=== PATIENT | female | born 1970 | race Caucasian/White ===

== ENCOUNTER 2020-04-06 09:35 | Emergency (ER) | payer OTHER, SELFPAY ==
--- NOTE | ~2020-04-06 | XR_ITS ---
EXAMINATION: XR chest 2V DATE: 04/06/2020 10:48 INDICATION: Left chest pain. TECHNIQUE: Frontal and lateral views of the chest were obtained. COMPARISON: Chest single view 07/08/2018 FINDINGS: There is mild atelectasis in left lower lung zone. No pleural effusion or pneumothorax. The heart size is normal. IMPRESSION: 1. Mild atelectasis in left lower lung zone. Reviewed, dictated and finalized at location A. [employer]
--- NOTE | ~2020-04-06 | CT_ITS ---
EXAMINATION: CT brain wo con DATE: 04/06/2020 10:43 INDICATION: Headache. Seizure. TECHNIQUE: Computed tomography (CT) of the head was performed without intravenous contrast. The mA wa s adjusted according to patient size. Iterative reconstruction technique was employed. The dose-lengt h product was 605.33 mGy-cm. COMPARISON: Head CT 07/11/2018 FINDINGS: There is an old infarct in left parietal occipital region. There is an old infarct in media l left parietal lobe. There is no intracranial hemorrhage, acute infarction, or abnormal intracranial mass lesion. The ventricles are normal in size. The mastoid air cells are normal. The paranasal sinu ses are clear. The orbits are normal. IMPRESSION: 1. 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 Reviewed, dictated and finalized at location A. [employer]
[2020-04-06 09:33] VITALS: BP 158/96; PULSE 87; RESP 18; TEMP 36.4; O2SAT 99
[2020-04-06 09:41] VITALS: PULSE 87
--- NOTE | 2020-04-06 09:41 | ECG_ITS ---
Measurements Intervals [place] Rate: 89 P: 56 NM: 138 QRS: -39 QRSD: 97 T: 22 QT: 385 QTc: 470 Interpretive Statements SINUS RHYTHM POSSIBLE LEFT ATRIAL ENLARGEMENT LEFT AXIS DEVIATION DELAYED PRECORDIAL R/S TRANSITION BORDERLINE ST-T WAVE ABNORMALITY- HIGH LATERAL LEADS BASELINE WANDER- I, II, V1-V3 BORDERLINE ECG Electronically Signed On 04-06-2020 17:56:33 [employer] by Jon Arroyo D.O.
[2020-04-06] MEDS: ASPIRIN 81 MG CHEWABLE TABLET 324 MG PO (09:45)
--- NOTE | 2020-04-06 10:23 | ED.CHESTPAIN ---
HPI - Chest Pain General Chief Complaint: Chest Pain Stated Complaint: chest pain Time Seen by Provider: 04/06/20 10:04 Source: patient Mode of arrival: EMS Limitations: no limitations History of Present Illness HPI narrative: This is a 50-year-old female that presents to the emergency department for sharp left-sided chest pain since this morning. Reports intermittent pain in the last couple of days. Reports it has been constant today. Pain is worse with breathing and movement. Reports she was seen by transfer table operator earlier this year and had a cardiac catheterization and was told that she was not a candidate for intervention yet. She has not followed up with a transfer table operator since. Also reports she has been having seizures. Reports she was admitted to [place] for this and had an EEG. She was discharged on medication for her seizures, but did not pick this up due to the cost. Reports shortness of breath and lower extremity edema. Denies fever or cough. Related Data Home Medications Medication Instructions Recorded Confirmed gabapentin 600 mg PO TID 04/06/20 hydrocodone-acetaminophen [[place]] 1 tablet PO Q8H PRN 04/06/20 losartan 100 mg PO DAILY 04/06/20 Allergies Allergy/AdvReac Type Severity Reaction Status Date / Time Penicillins Allergy Unknown Dyspnea Verified 04/06/20 09:38 Review of Systems Review of Systems: Narrative: CONSTITUTIONAL: Denies fever CARDIOVASCULAR: Reports chest pain, and edema. RESPIRATORY: Reports dyspnea. Denies cough MUSCULOSKELETAL: Reports myalgia. NEUROLOGIC: Denies numbness, or weakness. All systems reviewed & are unremarkable except as noted in HPI and below PMFSH Past Medical History Medical History (Updated 04/06/20 @ 13:02 by Bethanie Farr PA-C) History of diabetes mellitus History of gastroesophageal reflux (GERD) History of hyperlipidemia History of hypertension Family History Family History (Updated 05/09/18 @ 11:49 by DOCTOR UNKNOWN) Father Family history of cardiovascular disease Family history of heart disease in male family member before age 55 Mother Family history of lung cancer, Onset Age: 53 Family history of malignant neoplasm of breast in first degree relative Other Diabetes mellitus Family history of malignant neoplasm Hypertension Social History Social History Smoking status: Never smoker Alcohol intake: current Exam Narrative: Exam Narrative: GENERAL: Well-appearing, obese, and in no acute distress. HEAD: Normocephalic, atraumatic. EYES: PERRLA and EOMI. ENT: Nares clear, no rhinorrhea or epistaxis. Mucous membranes moist. Oropharynx without tonsillar hypertrophy exudate or other lesions. Bilateral TMs pearly brian non-bulging NECK: Supple. No adenopathy or masses. No carotid bruits or JVD CHEST: Clear to auscultation. No respiratory distress. No wheezes rales or rhonchi. Tender to palpation of left anterior chest wall HEART: Regular rate and rhythm. No murmur heard. Normal peripheral pulses. EXTREMITIES: Normal range of motion. No edema. Right BKA. Left transmetatarsal amputation SKIN: Warm, dry, no rash. NEURO: No focal deficits. Alert and oriented x3. Cranial nerves II through XII grossly intact PSYCH: Normal mood and affect Course Vital Signs Vital signs: Vital Signs Temperature 97.5 F L 04/06/20 09:33 Pulse Rate 87 04/06/20 09:33 Respiratory Rate 18 04/06/20 09:33 Blood Pressure 158/96 H 04/06/20 09:33 Pulse Oximetry 99 04/06/20 09:33 Temperature 97.5 F L 04/06/20 09:33 Pulse Rate 87 04/06/20 12:31 Respiratory Rate 15 04/06/20 12:31 Blood Pressure 169/95 H 04/06/20 12:31 Pulse Oximetry 98 04/06/20 12:31 MDM - Chest Pain MDM Narrative Medical decision making narrative: Patient presents to the emergency department for sharp left-sided chest pain since this morning. Pain seems very musculoskeletal in nature. She was tender to palpation in the area and the pain was worse with
[2020-04-06 10:28] VITALS: BP 141/84; PULSE 83; RESP 21; O2SAT 99
[2020-04-06 10:35] LABS: Basophils Percent Auto 0.7 % (0.2-1.2); Eosinophils Absolute Auto 0.1 K/mm3 (0-0.3); Hemoglobin 14.2 g/dL (12.0-15.0); Immature Granulocyte Absolute 0.01 K/mm3 (0.00-0.031); Immature Granulocyte Percent A 0.2 % (0-0.5); Lymphocytes Absolute Auto 1.68 K/mm3 (0.9-3.2); Lymphocytes Percent Auto 27.5 % (18.3-44.2); Mean Corpuscular HGB Conc 34.6 g/dl (32-36); Mean Corpuscular Hemoglobin 31.4 pg (26-34); Mean Corpuscular Volume 90.7 fl (80-100); Mean Platelet Volume 10.2 fl (7.4-10.4); Monocytes Absolute Auto 0.3 K/mm3 (0.1-0.6); Monocytes Percent Auto 4.8 % (2.6-8.5); Neutrophils Percent Auto 65.8 % (45.5-73.1); Platelet Count Result 234 k/mm3 (150-375); Red Blood Count 4.52 M/mm3 (4.2-5.4); Red Cell Distribution Width 12.8 % (11.5-14.5); White Blood Count 6.1 K/mm3 (4.5-10.0)
[2020-04-06 10:45] LABS: INR 0.9; Partial Thromboplastin Time 23.5 SECONDS (22.3-36.8); Prothrombin Time 13.1 Seconds (11.1-14.7)
[2020-04-06 10:54] LABS: Anion Gap 10 mmol/L (8-16); Blood Urea Nitrogen 8 mg/dL (7-17); Calcium 9.3 mg/dL (8.4-10.2); Carbon Dioxide 29 mmol/L (22-30); Chloride 100 mmol/L (98-107); Estimated CRCL calculation 150 ml/min; Estimated Glomerular Filt Rate > 60; Glucose 265 mg/dL (65-105); Potassium 3.8 mmol/L (3.4-5.0); Sodium 139 mmol/L (137-145)
[2020-04-06 11:02] LABS: D Dimer 0.34 ug/mL (<0.48)
[2020-04-06 11:06] LABS: Troponin I < 0.012 ng/mL (0.000-0.034)
[2020-04-06 11:36] VITALS: BP 131/68; PULSE 84; RESP 21; O2SAT 96
[2020-04-06 12:31] VITALS: BP 169/95; PULSE 87; RESP 15; O2SAT 98
[2020-04-06 12:36] LABS: NT Pro B Type Natriuretic Pept 38 PG/ML (5-100)
--- NOTE | 2020-04-06 12:49 | PC.NURSE ---
Patient refusing all other medications at this time, patient also refusing any more lab draws (including 3 hour troponin) and requests to go home. Patient informed that she is not getting narcotic pain medications by EDP and patient in room upset and requesting to leave ED.
== END 2020-04-06 13:13 | disposition home or self-care (01) ==
PROVIDERS: Physician Assistant; Emergency Provider Emergency Medicine; PCP Physician Assistant
DX: R07.9 Chest pain, unspecified (principal); R56.9 Unspecified convulsions; E11.9 Type 2 diabetes mellitus without complications; K21.9 Gastro-esophageal reflux disease without esophagitis; E78.5 Hyperlipidemia, unspecified; I10 Essential (primary) hypertension; R94.31 Abnormal electrocardiogram [ECG] [EKG]
CPT/HCPCS: 36415; 70450; 71046; 80048; 83880; 84484; 85025; 85380; 85610; 85730; 93005; 96365; 99284; A9270; J0131

== ENCOUNTER 2021-01-03 17:12 | Emergency (ER) | payer OTHER, SELFPAY ==
[2021-01-03] VITALS (8 sets, daily range): BP systolic 103–148; BP diastolic 65–98; PULSE 100–117; RESP 15–20; TEMP 36.6; O2SAT 93–99
--- NOTE | ~2021-01-03 | CT_ITS ---
EXAMINATION: CT brain wo con DATE: 01/03/2021 17:45 INDICATION: Seizure. Confusion. TECHNIQUE: Computed tomography (CT) of the head was performed without intravenous contrast. The mA wa s adjusted according to patient size. Iterative reconstruction technique was employed. The dose-lengt h product was 908.00 mGy-cm. COMPARISON: Head CT 04/06/2020 FINDINGS: There are old infarcts in the left parietal lobe and left parietal occipital region. There is no intracranial hemorrhage, acute infarction, or abnormal intracranial mass lesion. The ventricles are normal in size. The mastoid air cells are normal. The paranasal sinuses are clear. The orbits ar e normal. IMPRESSION: 1. 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 Reviewed, dictated and finalized at location A.
--- NOTE | ~2021-01-03 | XR_ITS ---
EXAMINATION: XR chest 1V DATE: 01/03/2021 17:52 INDICATION: Seizure. TECHNIQUE: A single frontal view of the chest was obtained. COMPARISON: Chest 2 views 04/06/2020, CT abdomen and pelvis 05/28/2018 FINDINGS: The chest demonstrates clear lungs without pneumonia, pleural effusion, or pneumothorax. Th e heart size is normal. IMPRESSION: 1. No acute cardiopulmonary disease. Reviewed, dictated and finalized at location A.
--- NOTE | 2021-01-03 17:41 | ED.GENADULT ---
HPI - General Adult General Chief complaint: Unspecified <Randal Olivares MD - Last Filed: 01/03/21 18:54> Stated complaint: ? SEIZURE <Randal Olivares MD - Last Filed: 01/03/21 18:54> Time Seen by Provider: 01/03/21 17:22 <Randal Olivares MD - Last Filed: 01/03/21 18:54> History of Present Illness HPI narrative: Patient is a 50-year-old female who presents ER with possible seizure. Patient was found in a camping trailer when she was usually found at a hotel. She is not responding properly. Patient can only intermittently answer questions. She has some fine shaking tremors to her extremities. There is 1 person at the trailer he said she called him and he came back to his trailer and that is what prompted him to call EMS. No additional information can be elicited from this person nor from the patient. <Randal Olivares MD - Last Filed: 01/03/21 18:54> Related Data Home medications: Home Medications Medication Instructions Recorded Confirmed Unable to Obtain Home Medications 01/03/21 01/03/21 <Randal Olivares MD - Last Filed: 01/03/21 18:54> Allergies/adverse reactions: Allergies Allergy/AdvReac Type Severity Reaction Status Date / Time Penicillins Allergy Unknown Dyspnea Verified 04/06/20 09:38 <Randal Olivares MD - Last Filed: 01/03/21 18:54> Review of Systems Review of Systems: ROS unobtainable: Yes unobtainable due to mental status <Randal Olivares MD - Last Filed: 01/03/21 18:54> [facility] Past Medical History Medical History: Medical History (Updated 01/04/21 @ 00:42 by Isaiah Riley MD) History of diabetes mellitus History of gastroesophageal reflux (GERD) History of hyperlipidemia History of hypertension History of seizures <Randal Olivares MD - Last Filed: 01/03/21 18:54> Surgical History Surgical History: Surgical History (Updated 01/03/21 @ 18:52 by Randal Olivares MD) History of below-knee amputation of both lower extremities <Randal Olivares MD - Last Filed: 01/03/21 18:54> Family History Family History: Family History (Updated 05/09/18 @ 11:49 by DOCTOR UNKNOWN) Father Family history of cardiovascular disease Family history of heart disease in male family member before age 55 Mother Family history of lung cancer, Onset Age: 53 Family history of malignant neoplasm of breast in first degree relative Other Diabetes mellitus Family history of malignant neoplasm Hypertension <Randal Olivares MD - Last Filed: 01/03/21 18:54> Social History Social History: Social History Smoking status: Never smoker Alcohol intake: current Gender identity (if verbalized by the patient): Female <Randal Oliavres MD - Last Filed: 01/03/21 18:54> Exam Narrative: GENERAL: Chronically ill-appearing, well-nourished, and in no acute distress. HEAD: Normocephalic, atraumatic. EYES: PERRL and EOMI. ENT: Dry mucous membranes. Small contusions to the tongue bilaterally consistent with bite injury. CHEST: Clear to auscultation. No respiratory distress. HEART: Regular rate and rhythm. Normal peripheral pulses. ABDOMEN: Soft, nontender, nondistended. EXTREMITIES: Bilateral BKA's. No evidence of injury. SKIN: Warm, dry, no rash. NEURO: Awake and alert, oriented x1. Has occasional jerking sensation of the upper extremities as not rhythmic and seems to occur sporadically PSYCH: Normal mood and affect. <Randal Olivares MD - Last Filed: 01/03/21 18:54> Course Vital Signs Vital signs: Vital Signs Temperature 36.6 C 01/03/21 17:10 Pulse Rate 117 H 01/03/21 17:10 Respiratory Rate 18 01/03/21 17:10 Blood Pressure 126/98 H 01/03/21 17:10 Pulse Oximetry 95 01/03/21 17:10 Temperature 36.6 C 01/03/21 17:10 Pulse Rate 100 01/04/21 00:20 Respiratory Rate 16 01/03/21 23:47 Blood Pressure 103/65 01/03/21 23:32 Pulse Oximetry 93 01/03/21 23:32 <Dangelo
[2021-01-03 18:18] LABS: Basophils Percent Auto 0.3 % (0.2-1.2); Eosinophils Absolute Auto 0.9 K/mm3 (0-0.3); Hematocrit 45.9 % (37.0-47.0); Hemoglobin 15.1 g/dL (12.0-15.0); Immature Granulocyte Absolute 0.02 K/mm3 (0.00-0.031); Immature Granulocyte Percent A 0.2 % (0-0.5); Lymphocytes Absolute Auto 0.87 K/mm3 (0.9-3.2); Lymphocytes Percent Auto 9.5 % (18.3-44.2); Mean Corpuscular HGB Conc 32.9 g/dl (32-36); Mean Corpuscular Hemoglobin 30.5 pg (26-34); Mean Corpuscular Volume 92.7 fl (80-100); Mean Platelet Volume 10.1 fl (7.4-10.4); Monocytes Absolute Auto 0.2 K/mm3 (0.1-0.6); Monocytes Percent Auto 2.2 % (2.6-8.5); Neutrophils Absolute Auto 7.2 K/mm3 (1.3-6.7); Neutrophils Percent Auto 77.8 % (45.5-73.1); Platelet Count Result 306 k/mm3 (150-375); Red Blood Count 4.95 M/mm3 (4.2-5.4); Red Cell Distribution Width 12.7 % (11.5-14.5); White Blood Count 9.2 K/mm3 (4.5-10.0)
[2021-01-03 18:29] LABS: Anion Gap 14 mmol/L (8-16); Blood Urea Nitrogen 24 mg/dL (7-17); Calcium 9.6 mg/dL (8.4-10.2); Carbon Dioxide 27 mmol/L (22-30); Chloride 95 mmol/L (98-107); Estimated Glomerular Filt Rate > 60; Ethanol < 10 mg/dL (<10); Glucose 310 mg/dL (65-110); Potassium 4.4 mmol/L (3.4-5.0); Sodium 136 mmol/L (137-145)
[2021-01-03] MEDS: levETIRAcetam 1000MG/NACL100ML 1,000 MG/100 ML BAG 400 MG IVPB (19:17)
[2021-01-03 19:43] LABS: Add Urine Microscopic? YES; Appearance Urine Cloudy (Clear); Bacteria Urine 2+ /hpf; Bilirubin Urine Negative (Negative); Blood Urine 2+ (Negative); Color Urine Yellow (Yellow); Glucose Urine UA 3+ mg/dL (Negative); Ketones Urine 1+ mg/dL (Negative); Leukocyte Esterase Ur 2+ LEU/UL (Negative); Mucus Urine Heavy /lpf; Nitrate Urine Negative (Negative); Protein Urine 2+ mg/dL (Negative); Specific Grav Ur 1.023 (1.001-1.035); Urobilinogen Urine Negative mg/dL (<2.0); WBC Urine 51-75 /hpf
[2021-01-03 20:04] LABS: Amphetamine Screen Urine Negative (Negative); Barbiturate Screen Urine Negative (Negative); Benzodiazepines Screen Urine Negative (Negative); Cannabinoid Screen Urine Negative (Negative); Cocaine Screen Urine Negative (Negative); Methadone Screen Urine Negative (Negative); Opiate Screen Urine Negative (Negative); Phencyclidine Screen Urine Negative (Negative)
[2021-01-04] VITALS (8 sets, daily range): PULSE 100–102; RESP 13–19; TEMP 36.1
--- NOTE | 2021-01-04 00:06 | PC.NURSE ---
Pt a/o x 4. able to tell this RN her name, , date. requesting pain meds. reports she lives at home with her and her hands both hurt. no visible injuries.
--- NOTE | 2021-01-04 01:12 | PC.NURSE ---
Pt states to this RN that her doesn't drive. She reports she lives in a [place]el in [place], [place] at [address]
--- NOTE | 2021-01-04 01:23 | PC.NURSE ---
pt spoke to who requested pt call a taxi, and he will pay for it. taxi service knows that ED staff will place pt in taxi, and her will get her out. [employer] cab en route. pt address [address] [place], [place].
== END 2021-01-04 01:28 | disposition home or self-care (01) ==
PROVIDERS: Emergency Medicine; Emergency Provider Emergency Medicine; PCP Family Medicine
DX: R56.9 Unspecified convulsions (principal); E11.9 Type 2 diabetes mellitus without complications; K21.9 Gastro-esophageal reflux disease without esophagitis; E78.5 Hyperlipidemia, unspecified; I10 Essential (primary) hypertension; Z89.512 Acquired absence of left leg below knee; Z89.511 Acquired absence of right leg below knee
CPT/HCPCS: 36415; 51701; 70450; 71045; 80048; 80307; 81001; 85025; 87077; 87086; 87088; 87186; 96365; 99284; J1953

== ENCOUNTER 2021-01-09 01:27 | Observation (INO) | payer OTHER, SELFPAY ==
--- NOTE | ~2021-01-09 | XR_ITS ---
EXAMINATION: XR chest 1V portable INDICATION: Seizure TECHNIQUE: Portable AP chest at 0213 hours COMPARISON: 01/03/2021 FINDINGS: The lungs are free of acute opacities. There is no pleural effusion or pneumothorax. The ca rdiomediastinal silhouette is normal. IMPRESSION: 1. No acute cardiopulmonary abnormality. Reviewed, dictated and finalized at location B.
[2021-01-09 01:28] VITALS: PULSE 133; RESP 22; TEMP 39.5; O2SAT 94
--- NOTE | 2021-01-09 01:40 | ECG_ITS ---
Measurements Intervals [place] Rate: 111 P: 74 [place]: 134 QRS: -52 QRSD: 105 T: 50 QT: 354 QTc: 482 Interpretive Statements SINUS TACHYCARDIA LEFT ANTERIOR FASCICULAR BLOCK ANTEROSEPTAL INFARCT, AGE INDETERMINATE BASELINE ARTIFACT- II, V2-V6 ABNORMAL ECG Electronically Signed On 01-09-2021 5:59:02 CDT by Jon Arroyo D.O.
--- NOTE | 2021-01-09 02:11 | ED.GENADULT ---
HPI - General Adult General Chief complaint: Seizure Stated complaint: seizures Time Seen by Provider: 01/09/21 01:36 History of Present Illness HPI narrative: Patient 50-year-old female presents to emergency department with chief complaint of seizure. Patient has prior history of seizures and also history of diabetes. The patient was seen in the emergency department about a week ago for seizures was given a dose of Keppra and at that time was discharged home. Patient has history of diabetes called and the patient has history of bilateral BKA's. The patient had a generalized seizure and was found by EMS to be postictal. Related Data Home Medications Medication Instructions Recorded Confirmed Unable to Obtain Home Medications 01/03/21 01/03/21 Allergies Allergy/AdvReac Type Severity Reaction Status Date / Time Penicillins Allergy Unknown Dyspnea Verified 04/06/20 09:38 Review of Systems Review of Systems: A 10 system review of systems was completed on the patient and is negative except for what is stated in the HPI. Nursing and ancillary documentation was reviewed. [facility] Past Medical History Medical History History of diabetes mellitus History of gastroesophageal reflux (GERD) History of hyperlipidemia History of hypertension History of seizures Surgical History Surgical History History of below-knee amputation of both lower extremities Family History Family History Father Family history of cardiovascular disease Family history of heart disease in male family member before age 55 Mother Family history of lung cancer, Onset Age: 53 Family history of malignant neoplasm of breast in first degree relative Other Diabetes mellitus Family history of malignant neoplasm Hypertension Social History Social History Smoking status: Never smoker Alcohol intake: current Gender identity (if verbalized by the patient): Female Exam Narrative: GENERAL: Well-appearing, well-nourished, and in no acute distress. HEAD: Normocephalic, atraumatic. EYES: PERRLA and EOMI. ENT: Nares clear, no rhinorrhea or epistaxis. Mucous membranes moist. NECK: Supple. CHEST: Clear to auscultation. No respiratory distress. HEART: Tachycardic rate and rhythm. No murmur heard. Normal peripheral pulses. ABDOMEN: Soft, nontender, nondistended, normal active bowel sounds. EXTREMITIES: Normal range of motion. No edema. Bilateral BKA's SKIN: Warm, dry, no rash. NEURO: No focal deficits. Alert and oriented x3. PSYCH: Normal mood and affect. Course Vital Signs Vital signs: Vital Signs Temperature 39.5 C H 01/09/21 01:28 Pulse Rate 133 H 01/09/21 01:28 Respiratory Rate 22 H 01/09/21 01:28 Pulse Oximetry 94 01/09/21 01:28 Temperature 38.2 C H 01/09/21 04:11 Pulse Rate 115 H 01/09/21 04:11 Respiratory Rate 23 H 01/09/21 04:11 Blood Pressure 113/91 H 01/09/21 04:11 Pulse Oximetry 96 01/09/21 04:11 Medical Decision Making Vital Signs Vital Signs: Vital Signs Temperature 39.5 C H 01/09/21 01:28 Pulse Rate 133 H 01/09/21 01:28 Respiratory Rate 22 H 01/09/21 01:28 Pulse Oximetry 94 01/09/21 01:28 Temperature 38.2 C H 01/09/21 04:11 Pulse Rate 115 H 01/09/21 04:11 Respiratory Rate 23 H 01/09/21 04:11 Blood Pressure 113/91 H 01/09/21 04:11 Pulse Oximetry 96 01/09/21 04:11 Lab Data Result diagrams: 01/09/21 02:11 01/09/21 02:57 Labs: Lab Results 01/09/21 01/09/21 01/09/21 Range/Units 02:11 02:11 02:57 WBC 13.2 H (4.5-10.0) K/mm3 RBC 4.82 (4.2-5.4) M/mm3 Hgb 14.5 (12.0-15.0) g/dL Hct 43.9 (37.0-47.0) % MCV 91.1 (80-100) fl MCH 30.1 (26-34) pg MCHC 33
[2021-01-09 02:32] LABS: Basophils Percent Auto 0.2 % (0.2-1.2); Eosinophils Percent Auto 0.1 % (0-4.4); Hematocrit 43.9 % (37.0-47.0); Hemoglobin 14.5 g/dL (12.0-15.0); Immature Granulocyte Absolute 0.05 K/mm3 (0.00-0.031); Immature Granulocyte Percent A 0.4 % (0-0.5); Lymphocytes Percent Auto 3.8 % (18.3-44.2); Mean Corpuscular Hemoglobin 30.1 pg (26-34); Mean Corpuscular Volume 91.1 fl (80-100); Mean Platelet Volume 10.7 fl (7.4-10.4); Monocytes Absolute Auto 0.5 K/mm3 (0.1-0.6); Monocytes Percent Auto 3.8 % (2.6-8.5); Neutrophils Absolute Auto 12.1 K/mm3 (1.3-6.7); Neutrophils Percent Auto 91.7 % (45.5-73.1); Platelet Count Result 260 k/mm3 (150-375); Red Blood Count 4.82 M/mm3 (4.2-5.4); Red Cell Distribution Width 12.4 % (11.5-14.5); White Blood Count 13.2 K/mm3 (4.5-10.0)
[2021-01-09 02:43] LABS: Prothrombin Time 12.7 Seconds (11.1-14.7)
[2021-01-09 02:44] LABS: Partial Thromboplastin Time 23.2 SECONDS (22.3-36.8)
[2021-01-09] MEDS: SODIUM CHLORIDE 0.9% IV 1,000 ML 999 ML IV CONT ×2 (02:55→04:09)
[2021-01-09] MEDS: LORazepam INJ (*CRX) 2 MG/ML VIAL 1 MG IV PUSH (03:00)
[2021-01-09] MEDS: ONDANSETRON INJ 4 MG/2 ML VIAL IV PUSH ×3 (03:02→12:55)
[2021-01-09 03:16] LABS: Lactic Acid Reflex 3.5 mmol/L (0.7-2.1)
[2021-01-09 03:17] LABS: Alanine Aminotransferase 19 U/L (4-35); Albumin Level 3.7 g/dL (3.5-5.1); Alkaline Phosphatase 122 U/L (38-126); Anion Gap 10 mmol/L (8-16); Aspartate Amino Transferase 22 U/L (14-36); Bilirubin,Total 0.7 mg/dL (0.2-1.3); Blood Urea Nitrogen 10 mg/dL (7-17); Calcium 8.8 mg/dL (8.4-10.2); Carbon Dioxide 26 mmol/L (22-30); Chloride 100 mmol/L (98-107); Estimated Glomerular Filt Rate > 60; Glucose 337 mg/dL (65-110); Lipase 59 U/L (23-300); Magnesium 0.7 mg/dL (1.6-2.3); Potassium 3.5 mmol/L (3.4-5.0); Sodium 136 mmol/L (137-145)
[2021-01-09] MEDS: MORPHINE SULFATE (*CRX) 4 MG/ML INJ IV PUSH (04:10)
[2021-01-09 04:11] VITALS: BP 113/91; PULSE 115; RESP 23; TEMP 38.2; O2SAT 96
[2021-01-09 04:17] LABS: Glucose Point of Care 270 mg/dl (65-105)
[2021-01-09 04:19] LABS: Add Urine Microscopic? YES; Appearance Urine Cloudy (Clear); Bacteria Urine Trace /hpf; Bilirubin Urine Negative (Negative); Blood Urine 2+ (Negative); Color Urine Yellow (Yellow); Glucose Urine UA 3+ mg/dL (Negative); Ketones Urine Trace mg/dL (Negative); Leukocyte Esterase Ur 3+ LEU/UL (Negative); Mucus Urine Rare /lpf; Nitrate Urine Negative (Negative); Protein Urine 1+ mg/dL (Negative); Specific Grav Ur 1.023 (1.001-1.035); Squamous Epithelial Cell Urine Rare /hpf (Few); Urobilinogen Urine Negative mg/dL (<2.0); WBC Clumps Urine Present /HPF; WBC Urine >75 /hpf
[2021-01-09 06:02] LABS: Reflex Lactic Acid Yes or No Add Lactic
--- NOTE | 2021-01-09 06:39 | PM.IMHP ---
H&P: HPI History of Present Illness Date/Time: 01/09/21 06:39 Chief Complaint: Seizure Narrative: Patient 50-year-old female presents to emergency department with chief complaint of seizure. Patient has prior history of seizures not on seizure medication and has been ongoing since past 6 months. She is supposed to see a neurologist but has not been able to see 1. She has only been to the ER with seizures so far. Last evening she started shaking which lasted approximately 15 minutes. She states she was shaking all over her body and also ultimately lost consciousness. EMS was called by her and was brought to the ER for evaluation. She was postictal per ED physician at the time of his initial evaluation however has improved significantly in her mental status since then. She also feels back to her normal self. However she had a spike of fever in the ER and was noted to have urinary tract infection. She also reports that she has been having urinary complaints with burning urination since past few days. She was here a week ago with similar seizure-like episode and was placed on Keppra and discharged home. It is noted that she had a urinary tract infection at that time as well the culture of which is is growing ESBL Klebsiella pneumoniae. She has a history of diabetes mellitus and on insulin. She also has diabetic foot infection needing bilateral BKA 1 2 years ago and [address] head done a week ago for similar seizure was negative CT head has not been repeated this time. She was noted to have lactic acidosis of 3.5 this admission Review of Systems Review of Systems: - CONSTITUTIONAL: Denies weight loss, fever and chills. - HEENT: Denies changes in vision and hearing - RESPIRATORY: Denies SOB and cough. - CV: Denies palpitations and CP. - GI: Reports abdominal pain, nausea, vomiting and denies diarrhea. - : Reports dysuria and urinary frequency. - MSK: Denies myalgia and joint pain. - SKIN: Denies rash and pruritus. - NEUROLOGICAL: Denies headache and syncope. Reports seizure/shaking - PSYCHIATRIC: Denies recent changes in mood. Denies anxiety and depression. All systems reviewed & are unremarkable except as noted in HPI and below Constitutional: Constitutional: Reports fatigue and Reports weakness Neurologic: Reports weakness Endocrine: Endocrine: Reports fatigue PMFSH Past Medical History Medical History History of diabetes mellitus History of gastroesophageal reflux (GERD) History of hyperlipidemia History of hypertension History of seizures Surgical History Surgical History History of below-knee amputation of both lower extremities Family History Family History Father Family history of cardiovascular disease Family history of heart disease in male family member before age 55 Mother Family history of lung cancer, Onset Age: 53 Family history of malignant neoplasm of breast in first degree relative Other Diabetes mellitus Family history of malignant neoplasm Hypertension Social History Social History Smoking status: Never smoker Alcohol intake: current Gender identity (if verbalized by the patient): Female Meds Home Medications and Allergies Home Medications Medication Instructions Recorded Confirmed Type Unable to Obtain Home Medications 01/03/21 01/03/21 History Allergies Allergy/AdvReac Type Severity Reaction Status Date / Time Penicillins Allergy Unknown Dyspnea Verified 04/06/20 09:38 Vital Signs Vital Signs - 24 hr 01/09/21 01:28 01/09/21 04:11 Temperature 103.1 F H 100.7 F H Pulse Rate 133 H 115 H Respiratory Rate 22 H 23 H Blood Pressure 113/91 H Pulse Oximetry 94 96 Exam Narrative
--- NOTE | 2021-01-09 07:38 | ADMGEN ---
This patient, Jayne Strong, was admitted to [facility] Surg Room 322-02. Patient/family oriented to hospital policies and general routines including ID bracelet, bed and alarms, visiting hours, pain management, procedures, bathroom and other care routines, personal items, smoking policy, room service/diet, and visiting hours. Information on how to activate the Rapid Response Team has been discussed. Patient/Family are encouraged to report perceived risks to care and to ask questions if they do not understand what they are told or what they should do.
[2021-01-09 08:30] LABS: Glucose Point of Care 249 mg/dl (65-105)
[2021-01-09 08:37] LABS: Lactic Acid 3.5 mmol/L (0.7-2.1)
[2021-01-09] MEDS: SODIUM CHLORIDE 0.9% IV 1,000 ML 100 ML IV CONT (08:56)
[2021-01-09] MEDS: INSULIN ASPART (*BKC) 100 UNITS/ML 12 UNITS SUB-Q (08:59)
[2021-01-09] MEDS: INSULIN ASPART (*BKC) 100 UNITS/ML SUB-Q (08:59)
--- NOTE | 2021-01-09 10:19 | WPDNEURCNPN ---
Assessment and Plan Additional Plan 1. EEG 2. Continue the Keppra 750 mg twice a day 3. She can always have an episode of hypoglycemia with seizures. Will increase the Keppra 1000 mg twice a day if definitely seizures are recurring without hypoglycemia Consult date: 01/09/21 Time Seen: 10:00 HPI: Jayne Strong is a 50 year old female has been admitted to the hospital for the complaints of seizures of 6 months duration she has not been seen by any specific physician in the past has only been coming to the emergency room reportedly she started shaking which lasted for about 15 minutes and she became unconscious EMS was called by her and she was brought to the emergency room for further help by the time she was seen in the emergency room she had significantly improved but she was noted to have elevated temperature and was found to have UTI which she has been having rather frequently . She had been in the emergency room a week early with the same complaints and was started on Keppra at that particular time and her urine from that time is growing Klebsiella pneumonia. Patient has history of diabetes mellitus insulin-dependent, has undergone bilateral below-knee amputation, and had a CT scan done about a week ago which was negative. As mentioned above she has ongoing history of diabetes mellitus, GERD, hypertension, and seizure disorder, and has undergone bilateral [id number] amputation of both lower extremities. She is a never smoker current alcohol intaker Review of Systems Review of Systems: All systems reviewed & are unremarkable except as noted in HPI and below PMFSH Past Medical History Medical History History of diabetes mellitus History of gastroesophageal reflux (GERD) History of hyperlipidemia History of hypertension History of seizures Surgical History Surgical History History of below-knee amputation of both lower extremities Family History Family History Father Family history of cardiovascular disease Family history of heart disease in male family member before age 55 Mother Family history of lung cancer, Onset Age: 53 Family history of malignant neoplasm of breast in first degree relative Other Diabetes mellitus Family history of malignant neoplasm Hypertension Social History Social History Smoking status: Never smoker Alcohol intake: current Gender identity (if verbalized by the patient): Female Meds Home Medications and Allergies Home Medications Medication Instructions Recorded Confirmed Type aspirin 81 mg DAILY 01/09/21 01/09/21 History atorvastatin 40 mg PO DAILY 01/09/21 01/09/21 History famotidine 20 mg BID 01/09/21 01/09/21 History gabapentin 600 mg TID 01/09/21 01/09/21 History insulin glargine [Basaglar KwikPen 42 unit SUBCUT DAILY 01/09/21 01/09/21 History U-100 Insulin] losartan 50 mg DAILY 01/09/21 01/09/21 History tamsulosin 0.4 mg PO DAILY 01/09/21 01/09/21 History Allergies Allergy/AdvReac Type Severity Reaction Status Date / Time Penicillins Allergy Unknown Dyspnea Verified 04/06/20 09:38 Vital Signs Vital Signs - 24 hr 01/09/21 01:28 01/09/21 04:11 Temperature 39.5 C H 38.2 C H Pulse Rate 133 H 115 H Respiratory Rate 22 H 23 H Blood Pressure 113/91 H Pulse Oximetry 94 96 Exam Narrative: examination revealed her to be awake alert cooperative in no obvious acute distress, head normocephalic with no cranial bruit, ear nose throat examination normal, neck is supple with no cervical bruit ,no thyromegaly, no lymphadenopathy, heart regular, lungs clear ,abdomen is soft, neurologically she has normal mental status, normal speech, pupils round regular bowens of vision full ,extraocular movements full ,face symmetrical, tongue midline and motor
[2021-01-09 11:44] LABS: Glucose Point of Care 151 mg/dl (65-105)
[2021-01-09 12:04] LABS: Lactic Acid Reflex 6.1 mmol/L (0.7-2.1)
[2021-01-09 13:21] LABS: Hematocrit 42.2 % (37.0-47.0); Hemoglobin 13.6 g/dL (12.0-15.0); Mean Corpuscular HGB Conc 32.2 g/dl (32-36); Mean Corpuscular Hemoglobin 30.3 pg (26-34); Mean Platelet Volume 11.1 fl (7.4-10.4); Platelet Count Result 194 k/mm3 (150-375); Red Blood Count 4.49 M/mm3 (4.2-5.4); Red Cell Distribution Width 12.8 % (11.5-14.5); White Blood Count 8.7 K/mm3 (4.5-10.0)
[2021-01-09 13:24] LABS: Phosphorus 2.2 mg/dL (2.5-4.5)
--- NOTE | 2021-01-09 13:25 | P.PNCROSS_ITS ---
Event Note Event Note Event Note: follow up rounding note. RN notified me that Lactic Acid rising now > 6 IVF rate increased Urine looks infected but will amplify spectrum of abx as pt has admitted she is a Fentanyl user and purchases her drugs from the street Pt upset that I will not give her Fentanyl and threatening to leave AMA I have called her mother in law ( pt does not know her 's phone number or where he works) She confirms that Jayne is frequently in and of hospitals ( she does this all the time. She buys pills from the street and takes 20-30 a day. then gets a seizure and is admitted to the hospital again ) [id number] declines to give me Darrion's number because he is at work and pr obably won't answer but does agree to try and call him and let him know his wants to leave AMA. I have called her back and she states that Darrion said he will come and get her, but he does not have a car and he will need to find someone to get him a ride.
--- NOTE | 2021-01-09 13:37 | WPDNEUROLOGY ---
Neurology EEG Report General Information Date of Study: 01/09/21 TEST eeg DIAGNOSIS Seizures CONDITION OF RECORDING drowsy and sleep EEG NUMBER [id number] CLINICAL HISTORY only from the records history of seizures EEG DESCRIPTION low-voltage beta activity seen admixed with low to medium voltage 5 to 7 hertz per 2nd theta activity during drowsiness. Bilateral symmetrical sleep activity seen during sleep. Multiple movements and muscle artifacts are also noted. Hyperventilation not done. Photic dilation not done. Non paroxysmal. Nonfocal. Nonlateralizing. IMPRESSION No significant abnormalities noted during drowsiness and sleep. Clinical correlation recommended
[2021-01-09 13:45] LABS: Creatine Kinase MB 0.6 ng/mL (0.0-2.37)
[2021-01-09 13:47] LABS: Alanine Aminotransferase 20 U/L (4-35); Alkaline Phosphatase 116 U/L (38-126); Anion Gap 12 mmol/L (8-16); Aspartate Amino Transferase 34 U/L (14-36); Bilirubin,Total 0.8 mg/dL (0.2-1.3); Blood Urea Nitrogen 11 mg/dL (7-17); CRP 3.3 mg/dL (<1.0); Calcium 9.1 mg/dL (8.4-10.2); Carbon Dioxide 26 mmol/L (22-30); Chloride 99 mmol/L (98-107); Estimated Glomerular Filt Rate > 60; Glucose 303 mg/dL (65-110); Magnesium 0.7 mg/dL (1.6-2.3); Sodium 137 mmol/L (137-145)
[2021-01-09 14:03] LABS: Band Neutrophils Percent 8 % (0-6); Lymphocytes Absolute Manual 0.17 K/mm3 (1.1-4.5); Monocytes Absolute Manual 0.08 K/mm3 (0.1-0.90); Monocytes Percent Manual 1 % (3-9); Neutrophils Absolute Manual 8.43 K/mm3 (1.7-7.2); Neutrophils Percent Manual 89 % (46-73); Platelet Estimate Adequate (Adequate); Total Cells Counted 100
[2021-01-09] MEDS: HYDROcodone/acetaminophen (*CRX) 5-325 MG TABLET 1 TAB PO (14:45)
[2021-01-09] MEDS: GABAPENTIN 300 MG CAPSULE PO (14:46)
[2021-01-09 15:13] VITALS: BP 123/73; PULSE 118; RESP 12; TEMP 38.1; O2SAT 96
--- NOTE | 2021-01-09 17:31 | PC.NURSE ---
Pt came from ED at shift change this morning. Pt was vomiting and complaining of choking, however was talking. We got pt cleaned up, and she slept for about 1 hr. Pt woke up and started yelling for pain meds. was notified with a critical latic result. Dr came to asses pt, and pt admitted to taking medication from the streets . Pt continually asked for pain meds and stated she uses fentanyl. When the Dr would not give pt more pain medications, the pt stated she is leaving. The dr explained and educated pt extensively about why she should stay in the hospital to treat her infection and receive antibiotics. This nurse also educated pt about staying to receive treatment. Pt received one dose of antibiotics, before she started to try to pull her IV out. Pt stated if we didnt get her a wheelchair she would put herself on the floor and crawl out. Pt could not tell us what her husbands phone number was or where he worked to reach him. We contacted a person she did give a number for, who also confirmed that the pt abuses multiple pain medications. Pt signed the AMA paperwork and was taken down to the front by staff, in a wheelchair. The tech stayed with pt, due to pt stating she would put herself out of the wheelchair, while she waited for a cab. The tech called this nurse, stating the pt was shaking and unresponsive. I went down to the lobby, where pt was in this condition. I called a rapid response. The pt was then taken back to the ED triage. Her was notified that she was going back to the ED.
--- NOTE | 2021-01-09 19:44 | PM.SD2 ---
Same Day Admit/Disch: HPI History of Present Illness Chief complaint: UTI/Hyperglycemia/seizure Narrative: Jayne Strong is a 50-year-old female presents to emergency department with chief complaint of seizure. Patient has prior history of seizures not on seizure medication and has been ongoing since past 6 months. She is supposed to see a neurologist but has not been able to see 1. She has only been to the ER with seizures so far. Last evening she started shaking which lasted approximately 15 minutes. She states she was shaking all over her body and also ultimately lost consciousness. EMS was called by her and was brought to the ER for evaluation. She was postictal per ED physician at the time of his initial evaluation however has improved significantly in her mental status since then. She also feels back to her normal self. However she had a spike of fever in the ER and was noted to have urinary tract infection. She also reports that she has been having urinary complaints with burning urination since past few days. She was here a week ago with similar seizure-like episode and was placed on Keppra and discharged home. It is noted that she had a urinary tract infection at that time as well the culture of which is is growing ESBL Klebsiella pneumoniae. She has a history of diabetes mellitus and on insulin. She also has diabetic foot infection needing bilateral BKA 1 2 years ago and [address] head done a week ago for similar seizure was negative CT head has not been repeated this time. She was noted to have lactic acidosis of 3.5 this admission PMFSH Past Medical History Medical History History of diabetes mellitus History of gastroesophageal reflux (GERD) History of hyperlipidemia History of hypertension History of seizures Surgical History Surgical History History of below-knee amputation of both lower extremities Family History Family History Father Family history of cardiovascular disease Family history of heart disease in male family member before age 55 Mother Family history of lung cancer, Onset Age: 53 Family history of malignant neoplasm of breast in first degree relative Other Diabetes mellitus Family history of malignant neoplasm Hypertension Social History Social History Smoking status: Never smoker Second hand tobacco smoke exposure: No Alcohol intake: never Substance use: never Gender identity (if verbalized by the patient): Female Spiritual care concerns: No Same Day Admit/Disch: Med Pre-admit Medications Home Medications Medication Instructions Recorded Confirmed Type aspirin 81 mg DAILY 01/09/21 01/09/21 History atorvastatin 40 mg PO DAILY 01/09/21 01/09/21 History famotidine 20 mg BID 01/09/21 01/09/21 History gabapentin 600 mg TID 01/09/21 01/09/21 History insulin glargine [Basaglar KwikPen 42 unit SUBCUT DAILY 01/09/21 01/09/21 History U-100 Insulin] losartan 50 mg DAILY 01/09/21 01/09/21 History tamsulosin 0.4 mg PO DAILY 01/09/21 01/09/21 History Exam Narrative: GEN: NAD, AAOx3, uncooperative HEENT: NCAT, MMM, EOMI Neck: no JVD Heart: S1S2 RRR Lungs: CTA B/l Abd: soft, NT, ND, bowel sounds normoactive Ext: moves all, no cyanosis, no clubbing, no edema bilateral BKA Neuro: Cranial nerves intact alert and oriented x3 no focal deficits Psych: Anxious mood and affect are congruent DS: Data Data Completed and Pending Labs on day of discharge: Labs from last 24 hours 01/09/21 01/09/21 01/09/21 11:39 10:48 08:26 WBC RBC Hgb Hct MCV MCH MCHC RDW Plt Count MPV Immature Gran % (Auto) Neut % (Auto) Lymph % (Auto) Door % (Auto) Eos % (Auto) Baso % (Auto)
[2021-01-10 01:11] LABS: Creatine Kinase 203 U/L (30-135)
== END 2021-01-09 17:00 | disposition left against medical advice (07) ==
LOC: ANHED 05:50 → ANH3MEDSUR 06:08
PROVIDERS: Hospitalist; Admitting Provider Internal Medicine; Emergency Provider Emergency Medicine; PCP Physician Assistant; Visit Provider Internal Medicine
DX: N30.00 Acute cystitis without hematuria (principal); A41.9 Sepsis, unspecified organism; R56.9 Unspecified convulsions; E87.2 Acidosis; B96.1 Klebsiella pneumoniae [K. pneumoniae] as the cause of diseases classified elsewhere; E11.65 Type 2 diabetes mellitus with hyperglycemia; I10 Essential (primary) hypertension; E78.5 Hyperlipidemia, unspecified; F11.20 Opioid dependence, uncomplicated; K21.9 Gastro-esophageal reflux disease without esophagitis; Z89.512 Acquired absence of left leg below knee; Z89.511 Acquired absence of right leg below knee; Z79.4 Long term (current) use of insulin; Z79.82 Long term (current) use of aspirin; Z99.3 Dependence on wheelchair
CPT/HCPCS: 36415; 71045; 80053; 81001; 82010; 82550; 82553; 82948; 83036; 83605; 83690; 83735; 84100; 85025; 85610; 85730; 86140; 87040; 87077; 87086; 87088; 87186; 93005; 95816; 96361; 96365; 96367; 96375; 96376; 99285; A9270; G0378; J0131; J0692; J0696; J1815; J2060; J2270; J2405; J7030

== ENCOUNTER 2021-01-09 17:00 | Inpatient (IN) | payer OTHER, SELFPAY ==
--- NOTE | ~2021-01-09 | XR_ITS ---
EXAMINATION: XR abdomen/kub 1V DATE: 01/13/2021 09:33 INDICATION: Left kidney stone. TECHNIQUE: A supine view of the abdomen was obtained. COMPARISON: CT abdomen and pelvis 01/11/2021 FINDINGS: There are no dilated loops of bowel. There is a left internal ureteral stent in expected po sition. There are 2 stones in left kidney with the larger measuring 15 mm. There are phleboliths in t he pelvis. IMPRESSION: 1. Left kidney stones with left internal ureteral stent in expected position. Reviewed, dictated and finalized at location B.
--- NOTE | ~2021-01-09 | CT_ITS ---
EXAMINATION: CT brain wo con DATE: 01/13/2021 12:40 INDICATION: Confusion. TECHNIQUE: Computed tomography (CT) of the head was performed without intravenous contrast. The mA wa s adjusted according to patient size. Iterative reconstruction technique was employed. The dose-lengt h product was 605.33 mGy-cm. 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 There is no intracranial hemorrhage, acute infarction, or abnormal intracranial mass lesion. The ventricles are normal in size. The orbits are normal. There is mild mucosal thickening in the paranasal sinuses . The mastoid air cells are normal. IMPRESSION: 1. 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 Reviewed, dictated and finalized at location B.
--- NOTE | ~2021-01-09 | XR_ITS ---
EXAMINATION: XR chest port-a-cath/central DATE: 01/12/2021 16:46 INDICATION: Central line placement. TECHNIQUE: A single frontal view of the chest was obtained. COMPARISON: Chest single view 01/11/2021, chest CT 01/11/2021 FINDINGS: There is chronic mild elevation of right hemidiaphragm. There are patchy airspace opacities in all right lung zones and in left upper and lower lung zones with a peripheral predominance. No pl eural effusion or pneumothorax. The heart size is normal. There is a right internal jugular central v enous catheter with tip at superior cavoatrial junction. IMPRESSION: 1. Central line tip at superior cavoatrial junction. 2. Multifocal lung disease with worsening on the left, likely a combination of pneumonia and mild pul monary edema. Reviewed, dictated and finalized at location B. IMPRESSION: 1. Central line tip at superior cavoatrial junction. 2. Multifocal lung disease with worsening on the left, likely a combination of pneumonia and mild pulmonary edema.
--- NOTE | ~2021-01-09 | CT_ITS ---
EXAMINATION: CT abdomen pelvis wo con DATE: 01/11/2021 18:40 INDICATION: Renal stone. TECHNIQUE: Computed tomography (CT) of the abdomen and pelvis was performed without intravenous contr ast. Automated exposure control and iterative reconstruction technique were employed. The dose-length product was 1543.10 mGy-cm. COMPARISON: None FINDINGS: Small left and tiny right posterior layering pleural effusions. Centrilobular groundglass opacities a nd some smooth septal line thickening at the visualized right lower lung most likely asymmetric mild pulmonary edema versus less likely pneumonia or aspiration. Heart size is normal. Atherosclerotic cor onary artery calcific location. No pericardial effusion. Status post cholecystectomy. Liver, spleen, pancreas and right adrenal gland are normal. Mild increase in size of a now 1 cm left adrenal nodule which given greater than 2 years of elapsed time most likely represents an adenoma. 13 mm obstructing stone at the left ureteropelvic junction with mild left hydronephrosis. Some gas is seen within the nondependent calyces of the left kidney which suggests infection with gas-forming organism. Additiona l thymoma or stone in an inferior calyx of the left kidney. Right kidney is unremarkable with no neph rolithiasis or hydronephrosis. Fluid throughout the colon consistent with diarrhea. Small bowel and a ppendix are normal. Heredia catheter within the decompressed bladder. Uterus and bilateral adnexa are u nremarkable. No free intraperitoneal gas or fluid. No pathologically enlarged abdominal or pelvic lym phadenopathy. Mild lumbar levocurvature with mild spondylosis. IMPRESSION: 1. Left nephrolithiasis with obstructing 13 mm stone at the left ureteropelvic junction. 2. Mild left hydropneumonephrosis raising concern for postobstructive pyelitis. Correlate with urinal ysis. 3. Centrilobular lung disease in the visualized right lower lung which could represent pulmonary keyona a, aspiration or pneumonia. 4. Small left and trace right pleural effusions. 5. Fluid throughout the colon consistent with diarrhea of indeterminate etiology. Reviewed, dictated and finalized at location A. IMPRESSION: 1. Left nephrolithiasis with obstructing 13 mm stone at the left ureteropelvic junction. 2. Mild left hydropneumonephrosis raising concern for postobstructive pyelitis. Correlate with urinalysis. 3. Centrilobular lung disease in the visualized right lower lung which could re present pulmonary edema, aspiration or pneumonia. 4. Small left and trace right pleural effusions. 5. Fluid throughout the colon consistent with diarrhea of indeterminate etiolog y.
--- NOTE | ~2021-01-09 | CT_ITS ---
EXAMINATION: CTA chest PE protocol DATE: 01/11/2021 18:39 INDICATION: Status change with hypoxia and tachycardia TECHNIQUE: Computed tomography (CT) pulmonary angiogram of the chest was performed with 100 mL Omnipa que-350 intravenous contrast. Additional 3D reconstructions utilizing coronal maximum intensity proje ction (MIP) were performed. Automated exposure control and iterative reconstruction technique were em ployed. The dose-length product was 766.64 mGy-cm. COMPARISON: None FINDINGS: Excellent contrast opacification of the pulmonary arteries. There is moderate streak artifact from de nse contrast in the superior vena cava and right atrium. Moderate to severe scattered respiratory mot ion artifact which more prominent in the right lung. No pulmonary embolism identified. Sensitivity is however mildly decreased in some of the smaller subsegmental pulmonary arteries on the left and more significantly decreased in the segmental and subsegmental pulmonary arteries throughout the right sivan ng. Centrilobular groundglass opacities in the right mid and lower lungs along with mild peripheral s eptal line thickening right upper and middle lobes. Small left and tiny right pleural effusions with mild dependent compressive atelectasis in the left lower lobe. Heart size is normal. Atherosclerotic coronary artery calcific location. No pericardial effusion. Thoracic aorta is normal in caliber with no dissection. No pathologically enlarged thoracic lymphadenopathy. Visualized upper abdomen is unrem arkable. lymphadenopathy. Mild thoracic spondylosis. IMPRESSION: 1. No evident pulmonary embolism with evaluation only minimally limited on the left but more signific antly limited in the segmental and subsegmental pulmonary arteries of the right lung by prominent res piratory motion. 2. Centrilobular groundglass opacities and some peripheral septal line thickening in the right lung m ost likely mild pulmonary edema although differential would include aspiration or pneumonia. 3. Small left and tiny right pleural effusions. Reviewed, dictated and finalized at location A. IMPRESSION: 1. No evident pulmonary embolism with evaluation only minimally limited on the left but more significantly limited in the segmental and subsegmental pulmonary arteries of the right lung by prominent respiratory motion. 2. Centrilobular groundglass opacities and some peripheral septal line thickeni ng in the right lung most likely mild pulmonary edema although differential wou ld include aspiration or pneumonia. 3. Small left and tiny right pleural effusions.
--- NOTE | ~2021-01-09 | XR_ITS ---
XR retrograde pyelo w/stent LT DATE: 01/12/2021 15:52 INDICATION: Left internal urinary stent placement TECHNIQUE: 15.3 seconds fluoroscopy time 356.9 radcm2 Multiple left retrograde pyelographic images COMPARISON: 01/11/2021 CT abdomen pelvis FINDINGS: An oval apparently faintly calcified left renal pelvic stone is identified. There is modera te left hydronephrosis with blunting of the left renal calyces. There appears to be a left internal urinary stent on the final images although detail is limited. The proximal pigtail probably overlies the upper pole infundibulum, distal pigtail probably overlying th e left side of the urinary bladder. IMPRESSION: 13 mm left pelvic calculus with moderate left hydronephrosis; apparent placement of left internal urinary stent. Image detail is limited. Reviewed, dictated and finalized at Location A. Reviewed, dictated and finalized at location A. IMPRESSION: 13 mm left pelvic calculus with moderate left hydronephrosis; appar ent placement of left internal urinary stent. Image detail is limited.
--- NOTE | ~2021-01-09 | XR_ITS ---
EXAMINATION: XR chest 1V portable DATE: 01/11/2021 15:25 INDICATION: Tachypnea TECHNIQUE: frontal view of the chest was obtained. COMPARISON: Chest radiograph dated 01/09/2021 FINDINGS: Persistent mild elevation of the right hemidiaphragm. There are new increased interstitial opacities with peripheral septal line thickening in the right mid to lower lung suggesting asymmetric mild pulm onary edema. Left lung remains clear. No pleural effusion or pneumothorax. The cardiomediastinal silh ouette is normal. IMPRESSION: 1. Symmetric interstitial opacities with peripheral septal line thickening in the right mid and lower lung zone which could represent asymmetric mild pulmonary edema or pneumonia. Reviewed, dictated and finalized at location A. IMPRESSION: 1. Symmetric interstitial opacities with peripheral septal line thickening in t he right mid and lower lung zone which could represent asymmetric mild pulmonar y edema or pneumonia.
--- NOTE | 2021-01-09 17:50 | ECG_ITS ---
Measurements Intervals Black Rate: 148 P: 64 NC: 115 QRS: -60 QRSD: 86 T: 82 QT: 285 QTc: 447 Interpretive Statements SINUS TACHYCARDIA WITH SHORT NC INTERVAL LEFT AXIS DEVIATION DELAYED PRECORDIAL R/S TRANSITION NONSPECIFIC ST & T-WAVE ABNORMALITY- HIGH LATERAL LEADS BASELINE WANDER- II, III, AVR, AVL, AVF, V1 ABNORMAL ECG Electronically Signed On 01-09-2021 20:13:23 CDT by Jon Arroyo D.O.
--- NOTE | 2021-01-09 18:14 | ED.WEAKNESS ---
HPI - Weakness General Chief complaint: Weakness <Isaiah Riley MD - Last Filed: 01/09/21 18:46> Stated complaint: not responding, <Isaiah Riley MD - Last Filed: 01/09/21 18:46> Time Seen by Provider: 01/09/21 18:10 <Isaiah Riley MD - Last Filed: 01/09/21 18:46> History of Present Illness HPI Narrative: 50 yo female w/ h/o DM, seizure disorder presents to the ED for AMS. She was seen in the ED this morning after a period of unresponsiveness. It was thought that she probably had a seizure. She had a lactic acidosis and UTI. Lactic acidosis cleared. She was admitted to the Hospital. She subsequently checked herself out AMA. She was in the lobby when a rapid response was called. On arrival back at the ED she was diaphoretic and tachycardic. She is not providing any additional history. <Isaiah Riley MD - Last Filed: 01/09/21 18:46> Related Data Home medications: Home Medications Medication Instructions Recorded Confirmed aspirin 81 mg DAILY 01/09/21 01/09/21 atorvastatin 40 mg PO DAILY 01/09/21 01/09/21 famotidine 20 mg BID 01/09/21 01/09/21 gabapentin 600 mg TID 01/09/21 01/09/21 insulin glargine [Basaglar KwikPen 42 unit SUBCUT DAILY 01/09/21 01/09/21 U-100 Insulin] losartan 50 mg DAILY 01/09/21 01/09/21 tamsulosin 0.4 mg PO DAILY 01/09/21 01/09/21 <Isaiah Riley MD - Last Filed: 01/09/21 18:46> Allergies/Adverse reactions: Allergies Allergy/AdvReac Type Severity Reaction Status Date / Time Penicillins Allergy Unknown Dyspnea Verified 01/09/21 10:49 <Isaiah Riley MD - Last Filed: 01/09/21 18:46> Review of Systems Review of Systems: ROS unobtainable: Yes unobtainable due to medical condition and unobtainable due to mental status <Isaiah Riley MD - Last Filed: 01/09/21 18:46> PMFSH Past Medical History Medical History: Medical History History of diabetes mellitus History of gastroesophageal reflux (GERD) History of hyperlipidemia History of hypertension History of seizures <Isaiah Riley MD - Last Filed: 01/09/21 18:46> Surgical History Surgical History: Surgical History History of below-knee amputation of both lower extremities <Isaiah Riley MD - Last Filed: 01/09/21 18:46> Family History Family History: Family History Father Family history of cardiovascular disease Family history of heart disease in male family member before age 55 Mother Family history of lung cancer, Onset Age: 53 Family history of malignant neoplasm of breast in first degree relative Other Diabetes mellitus Family history of malignant neoplasm Hypertension <Isaiah Riley MD - Last Filed: 01/09/21 18:46> Social History Social History: Social History Smoking status: Never smoker Second hand tobacco smoke exposure: No Alcohol intake: never Substance use: never Gender identity (if verbalized by the patient): Female Spiritual care concerns: No <Isaiah Riley MD - Last Filed: 01/09/21 18:46> Exam Const: General: alert and ill appearing <Isaiah Riley MD - Last Filed: 01/09/21 18:46> Other: Mild distress. <Isaiah Riley MD - Last Filed: 01/09/21 18:46> HENMT: Mouth: Yes dry mucous membranes <Isaiah Riley MD - Last Filed: 01/09/21 18:46> Eyes: Pupils: Equal, round and reactive pupils present <Isaiah Riley MD - Last Filed: 01/09/21 18:46> Resp: Effort & Inspection: normal respiratory effort <Isaiah Riley MD - Last Filed: 01/09/21 18:46> Auscultation: clear to auscultation bilaterally <Isaiah Riley MD - Last Filed: 01/09/21 18:46> Cardio: Rate: tachycardic <Isaiah Riley MD - Last Filed: 01/09/21 18:46
--- NOTE | 2021-01-09 18:21 | PC.NURSE ---
This RN into pts room. This RN trying to start an IV but pt is is not wanting it. Pt keeps pulling arm away from this RN. PT states she wants to go home. Dr. Riley in pts room and explained to pt that she is very sick. Pt did not respond. This RN back into pts room and asked pt is she understands that she is very sick. Pt shook head yes. Asked pt again if she wanted to leave and pt shook her head yes. Informed charge nurse of this.
[2021-01-09 18:54] VITALS: BP 103/58; PULSE 144; RESP 36
[2021-01-09] MEDS: SODIUM CHLORIDE 0.9% IV 1,000 ML 999 ML IV CONT ×2 (18:54→18:55)
[2021-01-09 18:58] LABS: Basophils Percent Auto 0.5 % (0.2-1.2); Hematocrit 42.9 % (37.0-47.0); Hemoglobin 14.2 g/dL (12.0-15.0); Immature Granulocyte Absolute 0.04 K/mm3 (0.00-0.031); Immature Granulocyte Percent A 0.7 % (0-0.5); Lymphocytes Absolute Auto 0.26 K/mm3 (0.9-3.2); Lymphocytes Percent Auto 4.3 % (18.3-44.2); Mean Corpuscular HGB Conc 33.1 g/dl (32-36); Mean Corpuscular Hemoglobin 30.1 pg (26-34); Mean Corpuscular Volume 90.9 fl (80-100); Mean Platelet Volume 10.7 fl (7.4-10.4); Monocytes Absolute Auto 0.1 K/mm3 (0.1-0.6); Monocytes Percent Auto 0.8 % (2.6-8.5); Neutrophils Absolute Auto 5.6 K/mm3 (1.3-6.7); Neutrophils Percent Auto 93.7 % (45.5-73.1); Platelet Count Result 167 k/mm3 (150-375); Red Blood Count 4.72 M/mm3 (4.2-5.4); Red Cell Distribution Width 12.6 % (11.5-14.5)
[2021-01-09 19:10] LABS: Lactic Acid Reflex 5.3 mmol/L (0.7-2.1)
[2021-01-09 19:18] LABS: Albumin Level 3.6 g/dL (3.5-5.1); Alkaline Phosphatase 116 U/L (38-126); Anion Gap 12 mmol/L (8-16); Aspartate Amino Transferase 38 U/L (14-36); Blood Urea Nitrogen 14 mg/dL (7-17); Calcium 8.4 mg/dL (8.4-10.2); Carbon Dioxide 25 mmol/L (22-30); Chloride 98 mmol/L (98-107); Estimated Glomerular Filt Rate 58; Glucose 175 mg/dL (65-110); Potassium 3.3 mmol/L (3.4-5.0); Sodium 135 mmol/L (137-145)
[2021-01-09 19:20] LABS: Alanine Aminotransferase 29 U/L (4-35)
[2021-01-09 19:45] VITALS: BP 132/70; PULSE 124; RESP 32; O2SAT 100
[2021-01-09] MEDS: LORazepam INJ (*CRX) 2 MG/ML VIAL 1 MG IV PUSH (20:43)
[2021-01-09 20:52] VITALS: BP 122/72; PULSE 124; RESP 33; O2SAT 100
[2021-01-09 21:37] LABS: Lactic Acid Reflex 3.7 mmol/L (0.7-2.1)
[2021-01-09 21:55] LABS: Reflex Lactic Acid Yes or No Add Lactic
[2021-01-09 22:23] VITALS: BP 91/52; PULSE 124; RESP 33; O2SAT 99
[2021-01-09] MEDS: SODIUM CHLORIDE 0.9% IV 1,000 ML 150 ML IV CONT (23:55)
[2021-01-09 23:57] VITALS: BP 92/60; PULSE 126; RESP 33; O2SAT 96
[2021-01-10] VITALS (16 sets, daily range): BP systolic 93–138; BP diastolic 63–85; PULSE 94–155; RESP 26–36; TEMP 36.5–39.8; O2SAT 93–100
[2021-01-10 00:21] LABS: Glucose Point of Care 155 mg/dl (65-105)
--- NOTE | 2021-01-10 02:22 | PM.IMHP ---
H&P: HPI History of Present Illness Date/Time: 01/10/21 02:22 Chief Complaint: altered mental status Narrative: 50 yo female w/ h/o DM, seizure disorder who presents to the ED again after she left AMA. she was down to the lobby from leaving AMA where a rapid response was needed to be called due to a fall out of the wheelchair? she was drowsy per report . she is noted to be diaphoretic and tachycardic and was taken to the ED for evalaution. In the ED, she was noted to be tachycardic with lactic acidosis. she is gettting readmitted for further evaluation. she was asking for pain medications and she has hx of abusing multiple different pain medications from the street. She was seen in room 211. She does not want talk and wants to rest and refuses transfer anemia my question. Review of Systems Review of Systems: ROS unobtainable: Yes unobtainable due to medical condition and other (Refuses to answer) PMFSH Past Medical History Medical History History of diabetes mellitus History of gastroesophageal reflux (GERD) History of hyperlipidemia History of hypertension History of seizures Surgical History Surgical History History of below-knee amputation of both lower extremities Family History Family History Father Family history of cardiovascular disease Family history of heart disease in male family member before age 55 Mother Family history of lung cancer, Onset Age: 53 Family history of malignant neoplasm of breast in first degree relative Other Diabetes mellitus Family history of malignant neoplasm Hypertension Social History Social History Smoking status: Never smoker Second hand tobacco smoke exposure: No Alcohol intake: never Substance use: never Gender identity (if verbalized by the patient): Female Spiritual care concerns: No Meds Home Medications and Allergies Home Medications Medication Instructions Recorded Confirmed Type aspirin 81 mg DAILY 01/09/21 01/09/21 History atorvastatin 40 mg PO DAILY 01/09/21 01/09/21 History famotidine 20 mg BID 01/09/21 01/09/21 History gabapentin 600 mg TID 01/09/21 01/09/21 History insulin glargine [Basaglar KwikPen 42 unit SUBCUT DAILY 01/09/21 01/09/21 History U-100 Insulin] losartan 50 mg DAILY 01/09/21 01/09/21 History tamsulosin 0.4 mg PO DAILY 01/09/21 01/09/21 History Allergies Allergy/AdvReac Type Severity Reaction Status Date / Time Penicillins Allergy Unknown Dyspnea Verified 01/09/21 10:49 Vital Signs Vital Signs - 24 hr 01/09/21 18:54 01/09/21 19:45 01/09/21 20:52 Temperature Pulse Rate 144 H 124 H 124 H Respiratory Rate 36 H 32 H 33 H Blood Pressure 103/58 L 132/70 122/72 Pulse Oximetry 100 100 01/09/21 22:23 01/09/21 23:57 01/10/21 01:14 Temperature Pulse Rate 124 H 126 H 120 H Respiratory Rate 33 H 33 H 33 H Blood Pressure 91/52 L 92/60 L 93/78 L Pulse Oximetry 99 96 93 01/10/21 02:07 Temperature 98.7 F Pulse Rate 121 H Respiratory Rate 33 H Blood Pressure 106/63 Pulse Oximetry 95 Exam Narrative: GENERAL: Ill-looking, and in no acute distress. HEAD: Normocephalic, atraumatic. EYES: PERRLA and EOMI. ENT: Nares clear, no rhinorrhea or epistaxis. Mucous membranes moist. NECK: Supple. Nontender CHEST: Clear to auscultation. No respiratory distress. HEART: Tachycardic rate and rhythm. No murmur rubs or gallops heard. Normal peripheral pulses. ABDOMEN: Soft, nontender, distended, normal active bowel sounds. EXTREMITIES: Normal range of motion. No edema. Bilateral BKA's SKIN: Warm, dry, no rash. NEURO: No focal deficits. Alert but keeps eyes closed opens on verbal commands refuses to answer and uncooperative PSYCH: Patient uncooperative H&P: Results Labs Labs: Shor
--- NOTE | 2021-01-10 02:30 | PC.NURSE ---
This patient, Jayne Strong, was admitted to IMU Room 205-02. Patient unable to be oriented to hospital policies and general routines at this time due to drowsiness. Family are encouraged to report perceived risks to care and to ask questions if they do not understand what they are told or what they should do.
[2021-01-10] MEDS: ERTAPENEM 1 GM/NS 50 ML 1 GM/50 ML BAG IVPB (04:05)
--- NOTE | 2021-01-10 06:20 | ECG_ITS ---
Measurements Intervals [place] Rate: 139 P: 62 [place]: 137 QRS: -49 QRSD: 92 T: 87 QT: 292 QTc: 444 Interpretive Statements SINUS TACHYCARDIA LEFT AXIS DEVIATION BORDERLINE ST-T WAVE ABNORMALITY- HIGH LATERAL LEADS BASELINE WANDER- II, III, AVL, AVF, V1, V6 ABNORMAL ECG Electronically Signed On 01-10-2021 11:07:04 CDT by Jon Arroyo D.O.
[2021-01-10] MEDS: METOPROLOL TARTRATE INJ 5 MG/5 ML VIAL (06:37)
[2021-01-10] MEDS: LORazepam INJ (*CRX) 2 MG/ML VIAL (06:37)
[2021-01-10] MEDS: ONDANSETRON INJ 4 MG/2 ML VIAL IV PUSH (06:38)
[2021-01-10] MEDS: MORPHINE SULFATE (*CRX) 2 MG/ML INJ (06:44)
[2021-01-10 06:47] LABS: Glucose Point of Care 159 mg/dl (65-105)
[2021-01-10] MEDS: SODIUM CHLORIDE 0.9% IV 1,000 ML 150 ML IV CONT (07:16)
[2021-01-10 07:28] LABS: Anion Gap 16 mmol/L (8-16); Blood Urea Nitrogen 16 mg/dL (7-17); Calcium 7.1 mg/dL (8.4-10.2); Carbon Dioxide 15 mmol/L (22-30); Chloride 102 mmol/L (98-107); Estimated Glomerular Filt Rate > 60; Glucose 145 mg/dL (65-110); Potassium 4.1 mmol/L (3.4-5.0); Sodium 133 mmol/L (137-145)
[2021-01-10 07:55] LABS: Troponin I 0.042 ng/mL (0.000-0.034)
--- NOTE | 2021-01-10 07:59 | PM.EVENT ---
Event Note Event Note Event Note: BELTING INSPECTOR called at approximtgely 630 am, patient tachycardic, supraventricular at 180. shaking and shivering. awake, alert and oriented. bp elevated. metoprolol iv 5 mg. ativan 1 mg iv given. heart rate improved down to 140s, sinus tahycardia. pupils were dilated bilateraly. skin flushed. she has hx of drug use. fentanyl and street drugs. gave morphine 2 mg iv x 1. shivering adn shaking resolved. patient was confused for a little bit post medication likely from [facility]. vitals remained stable. she was febrile as well at approximatley 102. give bolus ivf. she is already getting vanc and ertapenem. iv tylneol ordered. iv access not avilablbe. us guided peripheral iv line on right forearm placed. will continue fluid bolus. labs ordered for cbc, cmp, lactic acid, troponin. discussed with Dr. Garibay and signed out to dr. Lim.
[2021-01-10 08:02] LABS: Basophils Percent Auto 0.7 % (0.2-1.2); Eosinophils Percent Auto 0.2 % (0-4.4); Hematocrit 35.5 % (37.0-47.0); Immature Granulocyte Absolute 0.06 K/mm3 (0.00-0.031); Immature Granulocyte Percent A 1.4 % (0-0.5); Lymphocytes Absolute Auto 0.31 K/mm3 (0.9-3.2); Mean Corpuscular HGB Conc 33.8 g/dl (32-36); Mean Corpuscular Hemoglobin 30.2 pg (26-34); Mean Corpuscular Volume 89.2 fl (80-100); Mean Platelet Volume 11.2 fl (7.4-10.4); Monocytes Percent Auto 0.7 % (2.6-8.5); Platelet Count Result 106 k/mm3 (150-375); Red Blood Count 3.98 M/mm3 (4.2-5.4); Red Cell Distribution Width 12.4 % (11.5-14.5); White Blood Count 4.4 K/mm3 (4.5-10.0)
[2021-01-10 08:17] LABS: Anion Gap 13 mmol/L (8-16); Blood Urea Nitrogen 17 mg/dL (7-17); Calcium 6.9 mg/dL (8.4-10.2); Carbon Dioxide 16 mmol/L (22-30); Chloride 103 mmol/L (98-107); Estimated Glomerular Filt Rate > 60; Glucose 159 mg/dL (65-110); Potassium 3.3 mmol/L (3.4-5.0); Sodium 132 mmol/L (137-145)
[2021-01-10 08:32] LABS: Lactic Acid Reflex 6.1 mmol/L (0.7-2.1)
[2021-01-10 08:53] LABS: Glucose Point of Care 150 mg/dl (65-105)
--- NOTE | 2021-01-10 09:27 | PC.NURSE ---
Pt set off bed alarm and tele alarmed HR in 160's. Pt was rolling over on her side and retching, stated she was nauseated. Called MD who ordered an ekg. Upon reentering the room for vitals and ekg, pt was shaking and more tachypneic. Pt able to respond verbally to questions. Vitals difficult to obtain due to shaking and ekg was impossible at that time. Rapid response called.
[2021-01-10 10:56] LABS: Reflex Lactic Acid Yes or No Add Lactic
[2021-01-10] MEDS: HALOPERIDOL LACTATE 5 MG/ML VIAL 2 MG IM (11:06)
[2021-01-10 12:52] LABS: Lactic Acid 3.4 mmol/L (0.7-2.1)
[2021-01-10 12:56] LABS: Glucose Point of Care 131 mg/dl (65-105)
[2021-01-10] MEDS: SODIUM CHLORIDE 0.9% IV 1,000 ML 999 ML IV CONT ×3 (14:12→16:56)
[2021-01-10 15:29] LABS: Amphetamine Screen Urine Negative (Negative); Barbiturate Screen Urine Negative (Negative); Benzodiazepines Screen Urine Negative (Negative); Cannabinoid Screen Urine Negative (Negative); Cocaine Screen Urine Negative (Negative); Methadone Screen Urine Negative (Negative); Opiate Screen Urine Positive (Negative); Phencyclidine Screen Urine Negative (Negative)
[2021-01-10 16:16] LABS: Glucose Point of Care 136 mg/dl (65-105)
[2021-01-10 21:37] LABS: Glucose Point of Care 108 mg/dl (65-105)
[2021-01-10] MEDS: levETIRAcetam IV 750 MG in DEXTROSE 5% 100 ML 430 MG IVPB (21:38)
[2021-01-10] MEDS: TOLNAFTATE 1% POWDER 45 GM BTL 1 APPLIC TOPICAL (21:38)
[2021-01-11] VITALS (22 sets, daily range): BP systolic 90–165; BP diastolic 31–109; PULSE 84–164; RESP 16–32; TEMP 36.1–37.7; O2SAT 95–100
[2021-01-11] MEDS: SODIUM CHLORIDE 0.9% IV 1,000 ML 150 ML IV CONT ×2 (00:29→09:12)
[2021-01-11] MEDS: ERTAPENEM 1 GM/NS 50 ML 1 GM/50 ML BAG IVPB (04:23)
[2021-01-11 07:42] LABS: Glucose Point of Care 98 mg/dl (65-105)
[2021-01-11] MEDS: TOLNAFTATE 1% POWDER 45 GM BTL 1 APPLIC TOPICAL (08:19)
[2021-01-11] MEDS: levETIRAcetam IV 750 MG in DEXTROSE 5% 100 ML 430 MG IVPB ×2 (08:19→20:58)
[2021-01-11 10:03] LABS: Alanine Aminotransferase 12 U/L (4-35); Alkaline Phosphatase 83 U/L (38-126); Anion Gap 5 mmol/L (8-16); Aspartate Amino Transferase 23 U/L (14-36); Bilirubin,Total 0.4 mg/dL (0.2-1.3); Blood Urea Nitrogen 20 mg/dL (7-17); Calcium 5.8 mg/dL (8.4-10.2); Carbon Dioxide 16 mmol/L (22-30); Chloride 109 mmol/L (98-107); Estimated Glomerular Filt Rate > 60; Glucose 106 mg/dL (65-110); Magnesium 0.8 mg/dL (1.6-2.3); Potassium 2.7 mmol/L (3.4-5.0); Sodium 130 mmol/L (137-145)
--- NOTE | 2021-01-11 10:19 | PM.IMPN ---
Progress Note: A&P Assessment and Plan (1) Fentanyl use disorder, moderate, dependence: Code(s): F11.20 - Opioid dependence, uncomplicated Status: Acute (2) GERD (gastroesophageal reflux disease): Code(s): K21.9 - Gastro-esophageal reflux disease without esophagitis Status: Acute (3) Hyperlipidemia: Code(s): E78.5 - Hyperlipidemia, unspecified Status: Acute (4) Hypertension: Code(s): I10 - Essential (primary) hypertension Status: Acute (5) Urinary tract infection due to ESBL Klebsiella: Code(s): N39.0 - Urinary tract infection, site not specified; B96.89 - Other specified bacterial agents as the cause of diseases classified elsewhere Status: Acute (6) Lactic acidosis: Code(s): E87.2 - Acidosis Status: Acute (7) Sepsis: Code(s): A41.9 - Sepsis, unspecified organism Status: Acute (8) Complete below-knee amputation: Code(s): S88.119A - Complete traumatic amputation at level between knee and ankle, unspecified lower leg, initial encounter Status: Acute (9) Insulin dependent diabetes mellitus: Status: Acute (10) Generalized seizure: Code(s): R56.9 - Unspecified convulsions Status: Acute (11) History of CVA (cerebrovascular accident): Code(s): Z86.73 - Personal history of transient ischemic attack (TIA), and cerebral infarction without residual deficits Status: Acute (12) Diabetes mellitus with insulin therapy: Code(s): E11.9 - Type 2 diabetes mellitus without complications; Z79.4 - manager long term care (current) use of insulin Status: Acute (13) Electrolyte imbalance: Code(s): E87.8 - Other disorders of electrolyte and fluid balance, not elsewhere classified Status: Acute Additional Plan # Sepsis with evidence of SIRS as well as foci of infection from her urinary tract infection; will cover with ertapenem and vancomycin. follow cultures # UTI recent urine culture with Klebsiella ESBL will place on ertapenem 1 g IV every day follow urine culture from this admission # Lactic acidosis could be from seizure episode could be from sepsis as well will continue to monitor continue IV hydration # Seizure generalized shaking versus seizure episode unclear she does have history of urine continence with 1 of these episodes these episodes has been happening since past [address] head done recently on 01/03/2021 was negative will order EEG. Never seen a neurologist before will consult Neurology for seizure control for recurrent seizures/seizure-like episodes. neurology note reviewed. nancy justice. will continue same. # Diabetes mellitus type 2 with Hyperglycemia she takes Basaglar and NovoLog at home continue SSI for now resume home medication and adjust dose as needed # Bilateral BKA for diabetic foot infection in the past # multiple drug abuse # Hypertension # Hyperlipidemia # GERD # DVT prophylaxis place on Lovenox # Full code status 01/11/21 Ativan PRN x agitation replete Mg and K cont abx x ESBL klebsiella Is/Os VTEP heparin am labs Subjective Date/time seen: 01/11/21 10:19 pt sleeping awakens to voice, received Kate, RN bedside POC reviewed w him Exam Narrative: GENERAL: no acute distress. HEAD: Normocephalic, atraumatic. EYES: EOMI. clear sclera ENT: Nares clear, no rhinorrhea or epistaxis. NECK: Supple. Nontender CHEST: Clear to auscultation. No respiratory distress. HEART: Tachycardic rate and rhythm. No murmur rubs or gallops heard. ABDOMEN: Soft, nontender, distended, normal active bowel sounds. EXTREMITIES: No edema. Bilateral BKA's SKIN: Warm, dry, no rash. NEURO: No focal deficits. PSYCH: unable to evaluate Objective Data Vital Signs Vital Signs: Vital Signs - 24 hr 01/10/21 12:00 01/10/21 14:00 01/10/21 16:00 Temperature 99.3 F 97.7 F Pulse Rate 112 H 102 H 96 Respiratory Rate 32 H 36 H Blood Pressure 115/85 114/73 Pulse Oximetry 98 100 08/
[2021-01-11 10:45] LABS: Hematocrit 28.5 % (37.0-47.0); Hemoglobin 9.3 g/dL (12.0-15.0); Immature Platelet Fraction Pct 8.3 % (0.9-11.2); Mean Corpuscular HGB Conc 32.6 g/dl (32-36); Mean Corpuscular Hemoglobin 29.7 pg (26-34); Mean Corpuscular Volume 91.1 fl (80-100); Mean Platelet Volume 11.6 fl (7.4-10.4); Platelet Count Result 54 k/mm3 (150-375); Red Blood Count 3.13 M/mm3 (4.2-5.4); Red Cell Distribution Width 13.1 % (11.5-14.5); White Blood Count 9.1 K/mm3 (4.5-10.0)
[2021-01-11 10:45] LABS: Base Excess ABG -5.4 mEq/l (+/-2.0); Fractional Inspired Oxygen 21 %; HCO3 ABG 16.7 mEq/l (22.0-26.0); Oxygen Content ABG 17.4 %vol (16.0-22.0); Oxygen Saturation ABG 97.7 % (95.0-100.0); Oxyhemoglobin 96.1 % THb (90.0-100.0); PCO2 ABG 24.2 mmHg (35.0-45.0); PO2 ABG 94.8 mmHg (80.0-100.0); PO2 FiO2 Ratio Arterial Blood 4.51 %; Total Hemoglobin 12.8 g/dL (12.0-18.0); pH ABG 7.458 (7.350-7.450)
[2021-01-11 10:46] LABS: Device ROOM AIR; Modified Allen's Test Pass; Site Drawn RIGHT RADIAL
[2021-01-11] MEDS: MAGNESIUM SULF 4 GM/WATER100ML 4 GM/100 ML BAG IVPB (10:48)
[2021-01-11 10:53] LABS: Ammonia < 9 umol/L (9-30); Lactic Acid Reflex 0.9 mmol/L (0.7-2.1)
[2021-01-11 11:06] LABS: Band Neutrophils Percent 4 % (0-6); Lymphocytes Absolute Manual 0.63 K/mm3 (1.1-4.5); Neutrophils Absolute Manual 8.46 K/mm3 (1.7-7.2); Neutrophils Percent Manual 89 % (46-73); Platelet Estimate Decreased (Adequate); Total Cells Counted 100
[2021-01-11 12:34] LABS: Glucose Point of Care 92 mg/dl (65-105)
[2021-01-11] MEDS: HYDROcodone/acetaminophen (*CRX) 5-325 MG TABLET 1 TAB PO (13:43)
[2021-01-11] MEDS: LORazepam INJ (*CRX) 2 MG/ML VIAL 1 MG IV PUSH ×2 (14:04→20:57)
--- NOTE | 2021-01-11 14:18 | ECG_ITS ---
Measurements Intervals [place] Rate: 132 P: 53 [place]: 143 QRS: -47 QRSD: 91 T: 59 QT: 274 QTc: 407 Interpretive Statements SINUS TACHYCARDIA INCOMPLETE RIGHT BUNDLE BRANCH BLOCK LEFT ANTERIOR FASCICULAR BLOCK BASELINE ARTIFACT- I, II, III, AVR, AVL, AVF, V1-V6 ABNORMAL ECG Electronically Signed On 01-11-2021 17:41:54 CDT by Jon Arroyo D.O.
[2021-01-11] MEDS: METOPROLOL TARTRATE INJ 5 MG/5 ML VIAL 2.5 MG IV PUSH ×2 (14:30→15:14)
[2021-01-11 15:37] LABS: Alveolar/Arterial O2 Gradient 102.1 mmHg; Base Excess ABG -7.9 mEq/l (+/-2.0); Fractional Inspired Oxygen 28 %; HCO3 ABG 12.1 mEq/l (22.0-26.0); Oxygen Content ABG 17.3 %vol (16.0-22.0); Oxygen Saturation ABG 97.1 % (95.0-100.0); Oxyhemoglobin 95.2 % THb (90.0-100.0); PO2 ABG 79.6 mmHg (80.0-100.0); PO2 FiO2 Ratio Arterial Blood 2.84 %; Total Hemoglobin 12.9 g/dL (12.0-18.0)
[2021-01-11 15:43] LABS: PCO2 ABG 15.2 mmHg (35.0-45.0); Site Drawn RIGHT RADIAL; pH ABG 7.519 (7.350-7.450)
[2021-01-11 15:44] LABS: Device NASAL CANNULA; Modified Allen's Test Pass
[2021-01-11] MEDS: MORPHINE SULFATE (*CRX) 2 MG/ML INJ IV PUSH (16:23)
[2021-01-11 16:42] LABS: NT Pro B Type Natriuretic Pept 2170 pg/mL (5-100)
--- NOTE | 2021-01-11 17:27 | PC.NURSE ---
Herbert called in and was updated on current plan of care and telephone consent for CTA was given. All questions answered per Herbert.
[2021-01-11 18:04] LABS: Glucose Point of Care 106 mg/dl (65-105)
[2021-01-11] MEDS: HEPARIN SODIUM 5,000 UNITS/ML VIAL 5000 UNITS SUB-Q (18:51)
[2021-01-11] MEDS: SODIUM CHLORIDE 0.9% IV 1,000 ML 50 ML IV CONT (18:54)
[2021-01-11 20:32] LABS: Glucose Point of Care 103 mg/dl (65-105)
[2021-01-11] MEDS: LEVALBUTEROL NEB 1.25 MG/3 ML 0.63 MG INHALATION (20:37)
[2021-01-11] MEDS: LACTATED RINGERS 1,000 ML 100 ML IV CONT (20:57)
[2021-01-11] MEDS: FUROSEMIDE INJ 40 MG/4 ML VIAL 20 MG IV PUSH (20:58)
[2021-01-12] VITALS (26 sets, daily range): BP systolic 96–145; BP diastolic 50–77; PULSE 93–118; RESP 20–36; TEMP 36.4–37.5; O2SAT 95–100; BMI 33.5
[2021-01-12] MEDS: HYDROcodone/acetaminophen (*CRX) 5-325 MG TABLET 1 TAB PO (00:21)
[2021-01-12] MEDS: LORazepam INJ (*CRX) 2 MG/ML VIAL 1 MG IV PUSH (03:37)
[2021-01-12] MEDS: ERTAPENEM 1 GM/NS 50 ML 1 GM/50 ML BAG IVPB (03:38)
[2021-01-12] MEDS: HEPARIN SODIUM 5,000 UNITS/ML VIAL 5000 UNITS SUB-Q (05:46)
[2021-01-12 08:08] LABS: Glucose Point of Care 102 mg/dl (65-105)
--- NOTE | 2021-01-12 09:20 | WPDURCON ---
Assessment and Plan Assessment and plan (1) Urinary tract infection due to ESBL Klebsiella: Code(s): N39.0 - Urinary tract infection, site not specified; B96.89 - Other specified bacterial agents as the cause of diseases classified elsewhere Status: Acute Assessment and Plan: Continue culture sensitive antibiotics. Seondary to obstructing stone. (2) Sepsis: Code(s): A41.9 - Sepsis, unspecified organism Status: Acute (3) Obstruction of left ureteropelvic junction (UPJ): Code(s): N13.5 - Crossing vessel and stricture of ureter without hydronephrosis Status: Acute Assessment and Plan: Plan to go to the OR today with Dr. García: cystoscopy, left ureterosocpy with stent placement, left retrograde pyelogram. Obtain consent if she has a POA, unable to consent for her self d/t unresponsiveness. Keep NPO. Urology Consult Note HPI Date Seen: 01/12/21 Requesting Physician: Isabel Robles DO Primary Care Provider: Damon Joseph, PA Consult Narrative Narrative: Jayne Strong is a 50 year old female who presented to the ER on 01/09/2021 for a seizure. She has a known history of seizures and is a poorly controlled diabetic with BLE amputations. She was found to have urosepsis secondary to a 13mm left UPJ stone found on CT from 01/11/2021, which also showed hydro and perinephric stranding indicating left pyelonephritis. Her urine and blood cultures grew Klebsiella sensitive to Vancomycin and Ertapenem which she is currently on. WBC is improved from 13.2 on 01/09/2021 and is now 9.1. Creatinine is normal at 0.80. She is tachypneic, tachycardic and hypotensive, she is also unfortunately unresponsive at this time, but was reportedly confused and combative previously. All medical history is obtained from her nurse and her chart. Review of Systems Review of Systems: ROS unobtainable: Yes unobtainable due to medical condition [facility] Past Medical History Medical History History of CVA (cerebrovascular accident) History of diabetes mellitus History of gastroesophageal reflux (GERD) History of hyperlipidemia (Unknown) History of hypertension History of seizures Surgical History Surgical History History of below-knee amputation of both lower extremities Family History Family History Father Family history of cardiovascular disease Family history of heart disease in male family member before age 55 Mother Family history of lung cancer, Onset Age: 53 Family history of malignant neoplasm of breast in first degree relative Other Diabetes mellitus Family history of malignant neoplasm Hypertension Social History Social History Smoking status: Never smoker Second hand tobacco smoke exposure: No Alcohol intake: never Substance use: never Gender identity (if verbalized by the patient): Female Spiritual care concerns: No Meds Home Medications and Allergies Home Medications Medication Instructions Recorded Confirmed Type aspirin 81 mg PO DAILY 01/09/21 01/10/21 History atorvastatin 40 mg PO DAILY 01/09/21 01/10/21 History famotidine 20 mg PO BID 01/09/21 01/10/21 History gabapentin 600 mg PO TID 01/09/21 01/10/21 History insulin glargine [Basaglar KwikPen 42 unit SUBCUT DAILY 01/09/21 01/10/21 History U-100 Insulin] losartan 50 mg PO DAILY 01/09/21 01/10/21 History tamsulosin 0.4 mg PO DAILY 01/09/21 01/10/21 History insulin lispro 20 unit SUBCUT TIDWM 01/10/21 01/10/21 History levetiracetam 750 mg PO Q12H 01/10/21 01/10/21 History Allergies Allergy/AdvReac Type Severity Reaction Status Date / Time Penicillins Allergy Unknown Dyspnea Verified 01/09/21 10:49 Vital Signs Vital Signs - 24 hr 01/11/21 10:00 01/11/21
[2021-01-12] MEDS: levETIRAcetam IV 750 MG in DEXTROSE 5% 100 ML 430 MG IVPB ×2 (09:34→21:31)
[2021-01-12 09:41] LABS: Estimated Glomerular Filt Rate > 60
[2021-01-12 09:46] LABS: Glucose Point of Care 91 mg/dl (65-105)
--- NOTE | 2021-01-12 09:52 | PM.IMPN ---
Progress Note: A&P Assessment and Plan (1) Altered mental status: Code(s): R41.82 - Altered mental status, unspecified Status: Acute Assessment and Plan: Patient much less responsive. Glucose okay and VS stable. ABG ordered stat and showing 7.44/28/95 on 2L. Suspect this is related to sepsis from obstructing uropathy. Discussed with urology with plans for stent placement this morning. Monitor mental status after stent placement. May need further workup if her condition does not improve. 38 minutes spent on critcal care time. (2) Sepsis: Code(s): A41.9 - Sepsis, unspecified organism Status: Acute Assessment and Plan: Patient presents with sepsis symptoms with fever, elevated WBC, lactic acidosis and AMS. She has positive BCx and UCx with ESBL Klebsiella pneumoniasensitive to Ertapenem. The source related to UTI with obstructing pyelitis. CT scan showing left nephrolithiasis with obstructing 13 mm stone at the left ureteropelvic junction and left hydropneumonephrosis raising concern for postobstructive pyelitis. Currently on Vanco and Ertapenem. Stop Vanco. (3) Obstruction of left ureteropelvic junction (UPJ): Code(s): N13.5 - Crossing vessel and stricture of ureter without hydronephrosis Status: Acute Assessment and Plan: Patient present s with sepsis symptoms and found to have UTI Septicemia. CT scan showing left nephrolithiasis with obstructing 13 mm stone at the left ureteropelvic junction and left hydropneumonephrosis raising concern for postobstructive pyelitis. Urology has been consulted with plans for stent placement later this morning. (4) Thrombocytopenia: Code(s): D69.6 - Thrombocytopenia, unspecified Status: Acute Assessment and Plan: Plt count dropping. Probably related to sepsis. Follow. Repeat Plt 37K. Could also be related to the draw (it is difficult to obtain labs). Stop Heparin. Follow (5) Fentanyl use disorder, moderate, dependence: Code(s): F11.20 - Opioid dependence, uncomplicated Status: Acute Assessment and Plan: Patient developed tachycardic, supraventricular at 180 with shaking and shivering. Metoprolol iv 5 mg, ativan 1 mg iv and then morphine. Pupils were dilated and skin flushed. She has hx of drug use with fentanyl and street drugs. UDS positive for opiates. This may be related to the sepsis and she was having rigors or combination. Currently, not felt to be in withdrawal and more likely from the obstructing uropathy. Monitor in IMU. (6) Urinary tract infection due to ESBL Klebsiella: Code(s): N39.0 - Urinary tract infection, site not specified; B96.89 - Other specified bacterial agents as the cause of diseases classified elsewhere Status: Acute Assessment and Plan: As above (7) Lactic acidosis: Code(s): E87.2 - Acidosis Status: Acute Assessment and Plan: Lactic acid was as high as 6.1 but down to normal yesterday. Related to above. (8) Generalized seizure: Code(s): R56.9 - Unspecified convulsions Status: Acute Assessment and Plan: Seizure with generalized shaking versus rigors. Episode unclear but consider related to the septicemia. CT head done on 01/03/2021 was negative. EEG ordered but no neurology service available at this time. Keppra started. Continue seizure precautions. (9) Hypertension: Code(s): I10 - Essential (primary) hypertension Status: Acute Assessment and Plan: Patient's blood pressure was reviewed on 01/12 Blood pressure remains well controlled and soft at times. Will continue current medications. Contineu IV fluids. (10) Insulin dependent diabetes mellitus: Status: Acute Assessment and Plan: A1c 9.0. The patient's blood glucose was reviewed on 01/12 Glucose remains well controlled. Continue AccuCheks covering with sliding scale. Hypoglycemia protocol calin
[2021-01-12 10:00] LABS: Basophils Percent Auto 0.4 % (0.2-1.2); Immature Granulocyte Absolute 0.05 K/mm3 (0.00-0.031); Immature Granulocyte Percent A 0.6 % (0-0.5); Immature Platelet Fraction Pct 13.1 % (0.9-11.2); Lymphocytes Absolute Auto 0.35 K/mm3 (0.9-3.2); Lymphocytes Percent Auto 4.5 % (18.3-44.2); Mean Corpuscular HGB Conc 33.3 g/dl (32-36); Mean Corpuscular Hemoglobin 29.9 pg (26-34); Mean Corpuscular Volume 89.6 fl (80-100); Mean Platelet Volume 12.5 fl (7.4-10.4); Monocytes Absolute Auto 0.1 K/mm3 (0.1-0.6); Monocytes Percent Auto 0.8 % (2.6-8.5); Neutrophils Absolute Auto 7.4 K/mm3 (1.3-6.7); Neutrophils Percent Auto 93.7 % (45.5-73.1); Platelet Count Result 37 k/mm3 (150-375); Red Blood Count 3.35 M/mm3 (4.2-5.4); Red Cell Distribution Width 13.2 % (11.5-14.5); White Blood Count 7.9 K/mm3 (4.5-10.0)
[2021-01-12] MEDS: LEVALBUTEROL NEB 1.25 MG/3 ML 0.63 MG INHALATION (10:28)
[2021-01-12 10:43] LABS: Base Excess ABG -4.3 mEq/l (+/-2.0); Fractional Inspired Oxygen 28 %; HCO3 ABG 18.6 mEq/l (22.0-26.0); Oxygen Content ABG 15.3 %vol (16.0-22.0); Oxygen Saturation ABG 97.6 % (95.0-100.0); Oxyhemoglobin 96.3 % THb (90.0-100.0); PCO2 ABG 27.7 mmHg (35.0-45.0); PO2 FiO2 Ratio Arterial Blood 3.39 %; Total Hemoglobin 11.2 g/dL (12.0-18.0); pH ABG 7.446 (7.350-7.450)
[2021-01-12 10:44] LABS: Device NASAL CANNULA; Modified Allen's Test Unable to perform; Site Drawn RIGHT BRACHIAL
[2021-01-12 10:59] LABS: Alanine Aminotransferase 13 U/L (4-35); Alkaline Phosphatase 318 U/L (38-126); Anion Gap 7 mmol/L (8-16); Aspartate Amino Transferase 22 U/L (14-36); Bilirubin,Total 0.6 mg/dL (0.2-1.3); Blood Urea Nitrogen 21 mg/dL (7-17); Calcium 6.4 mg/dL (8.4-10.2); Carbon Dioxide 16 mmol/L (22-30); Chloride 107 mmol/L (98-107); Estimated Glomerular Filt Rate > 60; Glucose 88 mg/dL (65-110); Magnesium 1.4 mg/dL (1.6-2.3); Potassium 2.8 mmol/L (3.4-5.0); Sodium 130 mmol/L (137-145)
--- NOTE | 2021-01-12 11:25 | WPDINFPN2 ---
Progress Note: A&P Assessment and Plan (1) Urinary tract infection due to ESBL Klebsiella: Code(s): N39.0 - Urinary tract infection, site not specified; B96.89 - Other specified bacterial agents as the cause of diseases classified elsewhere Status: Acute Assessment and Plan: Complicated UTI with bacteremia, 2 different strains REC Ertapenem # 4 / 10 days, through 01/18. OR today. Call if Qs Subjective Date/time seen: 01/12/21 11:25 Objective Data Vital Signs Vital Signs: Vital Signs - 24 hr 01/11/21 11:36 01/11/21 12:00 01/11/21 14:00 Temperature 36.1 C L 37.3 C Pulse Rate 87 87 162 H Respiratory Rate 18 Blood Pressure 90/57 L 165/31 H Pulse Oximetry 100 95 01/11/21 14:30 01/11/21 15:14 01/11/21 15:15 Temperature Pulse Rate 160 H 138 H 137 H Respiratory Rate Blood Pressure 141/84 H Pulse Oximetry 96 01/11/21 16:00 01/11/21 18:00 01/11/21 19:27 Temperature 36.4 C L 36.6 C Pulse Rate 123 H 119 H 108 H Respiratory Rate 28 H 26 H Blood Pressure 145/109 H 93/56 L Pulse Oximetry 97 99 01/11/21 20:00 01/11/21 20:41 01/11/21 22:00 Temperature Pulse Rate 106 H 84 97 Respiratory Rate 16 16 Blood Pressure Pulse Oximetry 99 01/12/21 00:00 01/12/21 02:00 01/12/21 04:00 Temperature 37.4 C 37.3 C Pulse Rate 102 H 96 93 Respiratory Rate 29 H 28 H Blood Pressure 114/73 121/74 Pulse Oximetry 95 99 01/12/21 06:00 01/12/21 08:00 Temperature 36.4 C Pulse Rate 98 108 H Respiratory Rate 26 H Blood Pressure 96/60 L Pulse Oximetry 100 Intake/Output Intake/Output: Intake & Output 01/09/21 01/10/21 01/11/21 01/12/21 23:59 23:59 23:59 23:59 Intake Total 1999 6237.5 3765.0 1407.5 Output Total 700 1000 Balance 1999 6237.5 3065.0 407.5 Meds/Results Medications: Active Medications Generic Name Dose Route Start Last Admin Trade Name Freq PRN Reason Stop Dose Admin Hydrocodone Bitart/Acetaminophen 1 tab 01/09/21 19:44 01/12/21 00:21 Hydrocodone/Acetaminophen (*Crx) 5-325 Mg Tablet PO 1 tab Q4H PRN Administration Pain Rated 4-6 Dextrose 12.5 gm 01/10/21 03:48 Dextrose 50% 25 Gm/50 Ml Syringe IV PUSH PRN PRN Hypoglycemia Protocol Glucagon 1 mg 01/10/21 03:48 Glucagon For Inj 1 Mg Vial IM PRN PRN Hypoglycemia Protocol Glucose 15 gm 01/10/21 03:48 Glucose Oral Gel 15 Gm Of Glucse In 37.5 Gm Tube PO PRN PRN Hypoglycemia Protocol Haloperidol Lactate 2 mg 01/11/21 13:57 Haloperidol Lactate 5 Mg/Ml Vial IV PUSH Q6H PRN Agitation Heparin Sodium (Porcine) 5,000 units 01/11/21 18:00 01/12/21 05:46 Heparin Sodium 5,000 Units/Ml Vial SUB-Q 5,000 units Q12H RICHAR Administration Ertapenem 1 gm in 50 mls @ 100 mls/hr 01/10/21 03:00 01/12/21 07:36 Invanz 1 Gm/Ns 50 Ml IVPB 01/18/21 23:59 Infused Q24H RICHAR Infusion Dextrose 1,000 mls @ 100 mls/hr 01/10/21 03:48 Dextrose 5% 1,000 Ml IVPB PRN PRN Hypoglycemia Protocol Levetiracetam 750 mg/ Dextrose 107.5 mls @ 430 mls/hr 01/10/21 21:00 01/12/21 09:50 IVPB Infused Q12HR RICHAR Infusion Lactated Ringer's 1,000 mls @ 100 mls/hr 01/11/21 20:00 01/11/21 20:57 Lr - Lactated Ringers Iv IV CONT 100 mls/hr .Q10H RICHAR Administration Insulin Aspart 2 - 5 units 01/10/21 08:00 01/11/21 18:45 Insulin Aspart (*Bkc) 100 Units/Ml SUB-Q Not Given TIDWM RICHAR Protocol Ipratropium [place] 0.5 mg 01/11/21 19:08 Ipratropium Br 0.02% Inh Soln 0.5 Mg/2.5 Ml Vial INHALATION Q6HRT PRN Shortness Of Breath Levalbuterol HCl 0.63 mg 01/11/21 20:00 01/12/21 05:08 Levalbuterol Neb 1.25 Mg/3 Ml INHALATION Not Given Q6HRT RICHAR Lorazepam 1 mg 01/11/21 13:57 01/12/21 03:37 Lorazepam Inj (*Crx) 2 Mg/Ml Vial IV PUSH 1 mg Q6H PRN Administration Anxiety Metoprolol Tartrate 2.5 mg 01/11/21 14:20 01/11/21 15:14 Metoprolol Tartr
[2021-01-12 11:38] LABS: Glucose Point of Care 96 mg/dl (65-105)
[2021-01-12] MEDS: TOLNAFTATE 1% POWDER 45 GM BTL 1 APPLIC TOPICAL (12:14)
--- NOTE | 2021-01-12 12:47 | PCSTNOTE ---
The patient Bedside Swallow Evaluation was not able to be completed on 01/12/21 due to sepsis and being unable to participate. Will plan to attempt evaluation tomorrow if patient is able.
[2021-01-12] MEDS: MAGNESIUM SULF 2 GM/WATER 50ML 2 GM/50 ML BAG IVPB (12:57)
--- NOTE | 2021-01-12 13:43 | PC.NURSE ---
1325- To OR via bed accompanied by RN/ tech
--- NOTE | 2021-01-12 13:46 | WPDANESEPPF ---
Anes - Initial Pre Proc Eval Procedure: Operation Date: 01/12/21 14:30 Proposed Procedures p Cystoscopy, Left Ureteral Stent Placement - Jorgito García MD Date/Time: 01/12/21 13:46 Surgeon: Isabel Robles DO Pre Op Diagnosis: Sepsis, UTI Patient Data Age: 50 Gender: F Height: 1.57 m Weight: 83.1 kg Last Vital Signs Temp 37.5 C 01/12/21 11:51 Pulse 107 H 01/12/21 12:00 Resp 24 H 01/12/21 11:51 BP 100/50 L 01/12/21 11:51 Pulse Ox 100 01/12/21 12:00 Allergies Allergy/AdvReac Type Severity Reaction Status Date / Time Penicillins Allergy Unknown Dyspnea Verified 01/09/21 10:49 Home Medications Medication Instructions Recorded Confirmed Type aspirin 81 mg PO DAILY 01/09/21 01/10/21 History atorvastatin 40 mg PO DAILY 01/09/21 01/10/21 History famotidine 20 mg PO BID 01/09/21 01/10/21 History gabapentin 600 mg PO TID 01/09/21 01/10/21 History insulin glargine [Basaglar KwikPen 42 unit SUBCUT DAILY 01/09/21 01/10/21 History U-100 Insulin] losartan 50 mg PO DAILY 01/09/21 01/10/21 History tamsulosin 0.4 mg PO DAILY 01/09/21 01/10/21 History insulin lispro 20 unit SUBCUT TIDWM 01/10/21 01/10/21 History levetiracetam 750 mg PO Q12H 01/10/21 01/10/21 History Laboratory Tests 01/11/21 01/11/21 01/11/21 15:29 16:09 16:16 WBC RBC Hgb Hct MCV MCH MCHC RDW Plt Count MPV Immature Gran % (Auto) Neut % (Auto) Lymph % (Auto) [place] % (Auto) Eos % (Auto) Baso % (Auto) Lymph # (Auto) [place] # (Auto) Eos # (Auto) Baso # (Auto) Abs Immat Gran (auto) Absolute Neuts (auto) Absolute Nucleated RBC Nucleated RBC % % Immature Plt Fraction Puncture Site Right radial ABG pH 7.519 H* (7.350-7.450) ABG pCO2 15.2 mmHg L* mmHg (35.0-45.0) ABG pO2 79.6 mmHg L mmHg (80.0-100.0) ABG PO2/FiO2 Ratio 2.84 % % ABG HCO3 12.1 mEq/l L mEq/l (22.0-26.0) ABG O2 Saturation 97.1 % % (95.0-100.0) ABG O2 Content 17.3 %vol %vol (16.0-22.0) ABG Base Excess -7.9 mEq/l mEq/l (+/-2.0) A-a Gradient 102.1 mmHg mmHg Oxyhemoglobin 95.2 % THb % THb (90.0-100.0) Total Hemoglobin 12.9 g/dL g/dL (12.0-18.0) O2 Delivery Device Nasal cannula O2 Liters/Min 2.0 LPM LPM FiO2 28 % % Sodium Potassium Chloride Carbon Dioxide Anion Gap BUN Creatinine Estim Creat Clear Calc Estimated GFR Glucose POC Capillary Glucose 106 mg/dl H mg/dl (65-105) Calcium Magnesium Total Bilirubin AST ALT Alkaline Phosphatase NT-Pro-B Natriuret Pep 2170 pg/mL H pg/mL (5-100) Total Protein Albumin Heparin-induced Plt Ab Hep-Induced Plt Ab Cmmt 01/11/21 01/12/21 01/12/21 19:32 07:52 08:42 WBC RBC Hgb Hct MCV MCH MCHC RDW Plt Count MPV Immature Gran % (Auto) Neut % (Auto) Lymph % (Auto) [place] % (Auto) Eos % (Auto) Baso % (Auto) Lymph # (Auto) [place] # (Auto) Eos # (Auto) Baso # (Auto) Abs Immat Gran (auto) Absolute Neuts (auto) Absolute Nucleated RBC Nucleated RBC % % Immature Plt Fraction Puncture Site
[2021-01-12 13:54] LABS: Glucose Point of Care 108 mg/dl (65-105)
--- NOTE | 2021-01-12 14:19 | SUR.PREOP ---
1330; PT BROUGHT DOWN TO PREOP PER BED. PLACED ON MONITOR. PT IN NSR ON TELE. PT NEARLY UNRESPONSIVE. MAKES SLIGHT NOISE WHEN NAME CALLED. OTHERWISE DOES NOT RESPOND. HOB ELEVATED 30 DEGREES. O2 2L NC. PT SOFTLY SNORING. DR GÓMEZ NOTIFIED OF PT'S NONRESPONDING STATUS.
[2021-01-12] MEDS: LACTATED RINGERS 1,000 ML 30 ML IV CONT (14:24)
--- NOTE | 2021-01-12 14:31 | CONS_ITS ---
DATE OF CONSULTATION: 01/12/2021 REASON FOR CONSULTATION: UTI and bacteremia. HISTORY OF PRESENT ILLNESS: A 50-year-old female with seizure disorder. She has had previous bilateral BKAs. She was here in the emergency room on January 03 with questionable seizure activity. For unknown reasons, a urinalysis was obtained which was abnormal. Patient was given Keppra and discharged with no antibiotics documented in the record, although they may have been given after physician summary was completed. She returned to the hospital 6 days later with a seizure lasting 15 minutes. She again had an abnormal UA, also fever. She was admitted. She had been given ertapenem since arrival, now day #4. Investigations revealed a UPJ stone and urology intervention is planned for today. Hospital course has been complicated by decreased level of consciousness and combativeness. ALLERGIES: PENICILLIN CAUSED DYSPNEA. SHE HAS TOLERATED THE CARBAPENEM. PRESENT MEDICATIONS: Noted above. HABITS: No tobacco. No alcohol. PAST MEDICAL HISTORY: In addition to the above, stroke, diabetes mellitus, GERD, hyperlipidemia, hypertension. FAMILY HISTORY: Not pertinent to her present illness. SOCIAL HISTORY: No family at the bedside. Does not work outside the home. REVIEW OF SYSTEMS: 5-point review not obtainable from the patient but attempted. PHYSICAL EXAMINATION: GENERAL: This is a middle-aged female, who appears older than her actual age, in no respiratory distress. VITAL SIGNS: Temperature on arrival was 39.5, up to 39.8 early on the . She has been afebrile x24 hours, 96/60, 108, 26, 100%. SKIN: Warm and dry. No rashes. EENT: The conjunctivae are normal. No icterus. Dry mucous membranes. Teeth in fair repair. NECK: There is no meningismus. She has no cervical adenopathy. LUNGS: Clear to auscultation on tidal respirations. CARDIAC: Tachycardic, regular. No murmurs. Pulses 2+. ABDOMEN: Obese, nontender. No masses. No organomegaly. EXTREMITIES: No clubbing, cyanosis, or edema. NEUROLOGIC: She is somnolent. LABORATORY DATA: White count is 7.9, hemoglobin 10.0, platelets are 37,000. On admission, white count was normal, platelets were 167. Differential shows a left shift. Blood gases; 7.45, 28, 95, 19, 98%. She has hyponatremia, hypokalemia, BUN 21, creatinine 0.8. A1c 9.0%. Lactate was high, returned to normal less than 24 hours. Elevated alkaline phosphatase, normal albumin. Urinalysis, multiple abnormalities, which are reviewed. Urine culture with an ESBL-producing Klebsiella pneumoniae. Blood cultures with the same organism, but different susceptibilities which are reviewed. Abdomen and pelvic CT performed yesterday, nephrolithiasis, obstructing UPJ stone on the left, hydropneumonephrosis, centrilobular lung disease, fluid in the colon. ASSESSMENT: 1. Diabetes mellitus, not well controlled. 2. Previous below knee amputations. 3. Klebsiella bacteremia with infection due to complicated urinary tract infection and stones with obstruction. Other causes of bacteremia are unlikely. I suspect she has multiple strains of this klebsiella in her urine. Thus the differing urine and blood results in terms of susceptibilities. RECOMMENDATIONS: 1. Continue ertapenem through January 18 to complete a 10-day course. 2. Urologic intervention for source control. 3. Glycemic control also. Thank you for asking me to see her. Call if further questions. BULMARO MURO M.D. RELATIONSHIP MANAGEMENT LEAD RELATIONSHIP MANAGEMENT LEAD D I MT: Gerardo
--- NOTE | 2021-01-12 14:43 | SUR.PREOP ---
DR RICHARDSON HERE. ATTEMPTING TO SPEAK TO PT. PT DOES ANSWER TO NAME ONLY. WILL NOT OPEN EYES. REMAINS ON MONITORS.
--- NOTE | 2021-01-12 14:58 | WPDHPUPDATE1 ---
History and Physical Update Update Date/Time: 01/12/21 14:58 History and Physical has been reviewed, including an updated exam of the patient. There are NO changes in the patient's condition. Risks, benefits, and alternatives have been discussed and questions answered. Patient agrees to proceed with procedure.
--- NOTE | 2021-01-12 16:32 | WPDANESCVCPN ---
Anes - Cent Venous Cath Note Consent: I have discussed with the patient/family/POA, the non-emergent placement of a central venous catheter, including its clinical necessity/indication and associated potential risks and complications. The patient/family/POA understand(s) and acknowledge(s) the need to proceed with central venous catheter insertion as an important element of the patient's clinical management given emergent patient conditions, temporal constraints may have precluded informed consent. Time-Out: A pre-procedural Time-Out was completed immediately before starting the procedure and confirmed: Patient Identification, Site, Procedure, Patient Position and the Availability of Requisite Equipment. Procedure Note Clinical Indications: needs iv access Patient position: supine Central venous catheter insertion site: right internal jugular CVC method of insertion: ultrasound-guided Hand hygiene/Aseptic technique: Hand hygiene procedures were performed. Aseptic technique was maintained throughout the procedure. Sterile barrier precautions: Maximal sterile barrier precautions, including use of a cap, mask, sterile gown, sterile gloves and a sterile full body drape. Site prep: chlorhexidine Skin anesthesia: 1% lidocaine Mongolian: 7 Lumen: 3 Length (cm): 15 cm Depth of insertion (cm): 15 Closure/Dressing: suture, biopatch and tegaderm Complications: None immediately noted/suspected. Chest X Ray: Ordered/review to follow.
--- NOTE | 2021-01-12 17:03 | P.OP_ITS ---
Procedure Note - Detailed Date of Procedure 01/12/21 Pre-op Diagnosis Sepsis, UTI, left UPJ stone Post-op Diagnosis same Procedure Performed Cystoscopy, left retrograde pyelogram, left stent placement Surgeon Jorgito García MD Anesthesia MAC Indications This patient has a left UPJ stone and urosepsis. She will be taken emergency to the operating room for left ureteral stent placement. She is not consentable. I have discussed with her . Findings Large left UPJ stone. Purulent urine Description of Procedure She has correctly identified. Informed consent obtained from her . She brought into the operating room. She was given MAC anesthesia. She was prepped and draped in a sterile fashion. Time-out performed. I examined the bladder. She had some redness consistent with infection. Ureteral orifices were normal. I did gentle retrograde pyelogram on the left. I did this to outline the anatomy. The stone was seen on sales closer radiograph. With a retrograde the stone was seen as a filling defect. There is mild hydronephrosis proximal to the stone. With some difficulty I was able to negotiate a Glidewire into the ureter up into the kidney. I then placed a 4.8 variable length stent. The proximal coil was in the renal pelvis. The distal coil was in the bladder. A 16 Kisw[place]ili Heredia catheter was placed to gravity. She was awakened and transferred to PACU in stable condition. Implants 4.8 variable length stent Drains Yes (Heredia catheter) Packing No Pathology none sent Complications No immediate complications Condition stable Disposition PACU
[2021-01-12 17:10] LABS: Glucose Point of Care 114 mg/dl (65-105)
[2021-01-12 17:51] LABS: Glucose Point of Care 132 mg/dl (65-105)
[2021-01-12 20:18] LABS: Glucose Point of Care 143 mg/dl (65-105)
--- NOTE | 2021-01-12 20:28 | PC.NURSE ---
1730- returned to room from OR- pt sleeping- difficult to arouse- opens eyes briefly then to sleep- nonverbal-O2 on nasal cannula- 3l/nc-spo2= 99%- VSS- ST @100 -will continue to monitor
[2021-01-13] VITALS (12 sets, daily range): BP systolic 100–178; BP diastolic 53–79; PULSE 76–98; RESP 20–24; TEMP 36.3–36.8; O2SAT 97–100
[2021-01-13 05:02] LABS: Basophils Percent Auto 0.3 % (0.2-1.2); Eosinophils Percent Auto 0.1 % (0-4.4); Hematocrit 29.2 % (37.0-47.0); Hemoglobin 9.2 g/dL (12.0-15.0); Immature Granulocyte Absolute 0.05 K/mm3 (0.00-0.031); Immature Granulocyte Percent A 0.7 % (0-0.5); Lymphocytes Absolute Auto 0.93 K/mm3 (0.9-3.2); Lymphocytes Percent Auto 12.6 % (18.3-44.2); Mean Corpuscular HGB Conc 31.5 g/dl (32-36); Mean Corpuscular Hemoglobin 29.7 pg (26-34); Mean Corpuscular Volume 94.2 fl (80-100); Mean Platelet Volume 12.9 fl (7.4-10.4); Monocytes Absolute Auto 0.3 K/mm3 (0.1-0.6); Monocytes Percent Auto 3.6 % (2.6-8.5); Neutrophils Absolute Auto 6.1 K/mm3 (1.3-6.7); Neutrophils Percent Auto 82.7 % (45.5-73.1); Platelet Count Result 35 k/mm3 (150-375); Red Cell Distribution Width 13.9 % (11.5-14.5); White Blood Count 7.4 K/mm3 (4.5-10.0)
[2021-01-13 05:13] LABS: Alanine Aminotransferase 11 U/L (4-35); Albumin Level 1.9 g/dL (3.5-5.1); Alkaline Phosphatase 221 U/L (38-126); Anion Gap 6 mmol/L (8-16); Aspartate Amino Transferase 17 U/L (14-36); Bilirubin,Total 0.2 mg/dL (0.2-1.3); Blood Urea Nitrogen 17 mg/dL (7-17); Carbon Dioxide 22 mmol/L (22-30); Chloride 104 mmol/L (98-107); Estimated CRCL calculation 93 ml/min; Estimated Glomerular Filt Rate > 60; Glucose 105 mg/dL (65-110); Magnesium 1.7 mg/dL (1.6-2.3); Potassium 3.3 mmol/L (3.4-5.0); Sodium 132 mmol/L (137-145)
[2021-01-13 08:20] LABS: Glucose Point of Care 97 mg/dl (65-105)
--- NOTE | 2021-01-13 08:26 | WPDANESPN ---
Anes - Prog Note Post-Op Date/Time: 01/13/21 08:26 Cardiovascular status: normal Respiratory status: normal Airway patency: baseline Mental status: baseline Post-Op hydration status: normal Vital Signs: Last Vital Signs Temp 36.5 C 01/13/21 04:00 Pulse 98 01/13/21 05:59 Resp 22 H 01/13/21 04:00 BP 108/55 L 01/13/21 04:00 Pulse Ox 100 01/13/21 04:00 Pain Score (VAS): 0 I/O: Intake & Output 01/12/21 01/13/21 01/13/21 23:59 07:59 15:59 Intake Total 807.5 Output Total 75 900 Balance 732.5 -900 Laboratory Tests 01/13/21 04:10 01/13/21 04:10 01/12/21 01/12/21 01/12/21 08:42 09:05 09:10 WBC RBC Hgb Hct MCV MCH MCHC RDW Plt Count MPV Immature Gran % (Auto) Neut % (Auto) Lymph % (Auto) [place] % (Auto) Eos % (Auto) Baso % (Auto) Lymph # (Auto) [place] # (Auto) Eos # (Auto) Baso # (Auto) Abs Immat Gran (auto) Absolute Neuts (auto) Absolute Nucleated RBC Nucleated RBC % % Immature Plt Fraction Puncture Site ABG pH ABG pCO2 ABG pO2 ABG PO2/FiO2 Ratio ABG HCO3 ABG O2 Saturation ABG O2 Content ABG Base Excess A-a Gradient Oxyhemoglobin Total Hemoglobin O2 Delivery Device O2 Liters/Min FiO2 Sodium Potassium Chloride Carbon Dioxide Anion Gap BUN Creatinine 0.80 Estim Creat Clear Calc Not Reportable Estimated GFR > 60 Glucose POC Capillary Glucose 91 Calcium Magnesium Total Bilirubin AST ALT Alkaline Phosphatase Total Protein Albumin Direct Plt-Bound IgG Ab Heparin-induced Plt Ab Pending Hep-Induced Plt Ab Cmmt Pending 01/12/21 01/12/21 01/12/21 09:10 09:10 10:27 WBC 7.9 RBC 3.35 L Hgb 10.0 L Hct 30.0 L MCV 89.6 MCH 29.9 MCHC 33.3 RDW 13.2 Plt Count 37 L MPV 12.5 H Immature Gran % (Auto) 0.6 H Neut % (Auto) 93.7 H Lymph % (Auto) 4.5 L [place] % (Auto) 0.8 L Eos % (Auto) 0.0 Baso % (Auto) 0.4 Lymph # (Auto) 0.35 L [place] # (Auto) 0.1 Eos # (Auto) 0.0 Baso # (Auto) 0.0 Abs Immat Gran (auto) 0.05 H Absolute Neuts (auto) 7.4 H Absolute Nucleated RBC 0.0 Nucleated RBC % 0.0 % Immature Plt Fraction 13.1 H Puncture Site Right brachial ABG pH 7.446 ABG pCO2 27.7 L ABG pO2 95.0 ABG PO2/FiO2 Ratio 3.39 ABG HCO3 18.6 L ABG O2 Saturation 97.6 ABG O2 Content 15.3 L ABG Base Excess -4.3 A-a Gradient 72.0 Oxyhemoglobin 96.3 Total Hemoglobin 11.2 L O2 Delivery Device Nasal cannula O2 Liters/Min 2.0 FiO2 28 Sodium 130 L Potassium 2.8 L* Chloride 107 Carbon Dioxide 16 L Anion Gap 7 L BUN 21 H Creatinine 0.80 Estim Creat Clear Calc Not Reportable Estimated GFR > 60 Glucose 88 POC Capillary Glucose Calcium 6.4 L Magnesium 1.4 L Total Bilirubin 0.6 AST 22 ALT 13 Alkaline Phosphatase 318 H Total Protein 4.0 L Albumin 2.0 L Direct Plt-Bound IgG Ab Heparin-induced Plt Ab Hep-Induced Plt Ab Cmmt 01/12/21 01/12/21 01/12/21 11:18 13:50 16:39 WBC RBC Hgb Hct MCV MCH MCHC RDW Plt Count MPV Immature Gran % (Auto) Neut % (Auto) Lymph % (Auto) [place] % (Auto) Eos % (Auto) Baso % (Auto) Lymph # (Auto) [place] # (Auto) Eos # (Auto) Baso # (Auto) Abs Immat Gran (auto) Absolute Neuts (auto) Absolute Nucleated RBC Nucleated RBC % % Immature Plt Fraction Puncture Site ABG pH ABG pCO2 ABG pO2 ABG PO2/FiO2 Ratio ABG HCO3 ABG O2 Saturation ABG O2 Content ABG Base Excess A-a Gradient Oxyhemoglobin Total Hemoglobin O2 Delivery Device O2 Liters/Min FiO2 Sodium Potassium Chloride Carbon Dioxide Anion Gap BUN Creatinine Estim Creat Clear Ga
--- NOTE | 2021-01-13 08:36 | PCSTNOTE ---
Therapist spoke with nurse, Claudine, who again stated that patient is not ready for Bedside Swallow Evaluation. Therapist will keep order available and conference with nursing concerning when patient will be able to attempt evaluation.
[2021-01-13] MEDS: levETIRAcetam IV 750 MG in DEXTROSE 5% 100 ML 430 MG IVPB ×2 (09:28→20:11)
--- NOTE | 2021-01-13 10:44 | PC.NURSE ---
Consult for neuro on 01/12/21- Dr. Reaves called but stated he will not being returning until 01/19/21; Dr. Lima made aware no neurologist until 01/19/21
--- NOTE | 2021-01-13 11:49 | PM.IMPN ---
Progress Note: A&P Assessment and Plan (1) Altered mental status: Code(s): R41.82 - Altered mental status, unspecified Status: Acute Assessment and Plan: Patient more responsive today but not back to normal. Glucose okay and VS stable. ABG showing 7.44/28/95 on 2L. Suspect this is related to sepsis from obstructing uropathy and pyelitis. Despite some improvement, still not back to baseline. Consider w/d vs HAMMER OPERATOR infection vs HAMMER OPERATOR bleed/CVA vs related to septicemia but delayed improvement. Will repeat CT brain. Monitor in IMU. Check TSH, B12. (2) Sepsis: Code(s): A41.9 - Sepsis, unspecified organism Status: Acute Assessment and Plan: Patient presents with sepsis symptoms with fever, elevated WBC, lactic acidosis and AMS. She has positive BCx and UCx with ESBL Klebsiella pneumonia sensitive to Ertapenem. The source related to UTI with obstructing pyelitis. CT scan showing left nephrolithiasis with obstructing 13 mm stone at the left ureteropelvic junction and left hydropneumonephrosis raising concern for postobstructive pyelitis. Stent placed on 01/12. Vanco stopped 01/12. Continue Ertapenem. (3) Obstruction of left ureteropelvic junction (UPJ): Code(s): N13.5 - Crossing vessel and stricture of ureter without hydronephrosis Status: Acute Assessment and Plan: Patient present with sepsis symptoms and found to have UTI with Septicemia. Abdominal CT scan showing left nephrolithiasis with obstructing 13 mm stone at the left ureteropelvic junction and left hydropneumonephrosis raising concern for postobstructive pyelitis. Urology was consulted and patient underwent cystoscopy 01/12 with left retrograde pyelogram and left stent placement. They found a large left UPJ stone with purulent urine. Continue IV abx. (4) Thrombocytopenia: Code(s): D69.6 - Thrombocytopenia, unspecified Status: Acute Assessment and Plan: Patient has normal baseline plt count. Plt count dropping felt related to sepsis. Anti-plt Ab and Heaprin induced Ab ordered. Repeat Plt 35K. Follow. (5) Fentanyl use disorder, moderate, dependence: Code(s): F11.20 - Opioid dependence, uncomplicated Status: Acute Assessment and Plan: Patient developed tachycardic, supraventricular at 180 with shaking and shivering. Metoprolol iv 5 mg, ativan 1 mg iv and then morphine. Pupils were dilated and skin flushed. She has hx of drug use with fentanyl and street drugs. UDS positive for opiates. These symptoms may be related to withdrawal vs rigors from septicemia. Currently, not felt to be in withdrawal and more likely from septicemia. Monitor in IMU. (6) Urinary tract infection due to ESBL Klebsiella: Code(s): N39.0 - Urinary tract infection, site not specified; B96.89 - Other specified bacterial agents as the cause of diseases classified elsewhere Status: Acute Assessment and Plan: As above (7) Lactic acidosis: Code(s): E87.2 - Acidosis Status: Acute Assessment and Plan: Lactic acid was as high as 6.1 but down to normal now. Related to above. (8) Generalized seizure: Code(s): R56.9 - Unspecified convulsions Status: Acute Assessment and Plan: Seizure with generalized shaking versus rigors. Episode unclear but consider related to rigors from the septicemia. CT head done on 01/03/2021 was negative. EEG ordered but no neurology service available at this time. Keppra started IV. Continue seizure precautions. Repeat CT brain (9) Hypertension: Code(s): I10 - Essential (primary) hypertension Status: Acute Assessment and Plan: Patient's blood pressure was reviewed on 01/13 Blood pressure remains well controlled and soft at times. Will continue to hold Cozaar (10) Insulin dependent diabetes mellitus: Status: Acute Assessment and Plan: A1c 9.0. The patient's blood glucose was reviewed on
--- NOTE | 2021-01-13 11:56 | WPDUROPN2 ---
Progress Note: A&P Assessment and Plan (1) Obstruction of left ureteropelvic junction (UPJ): Code(s): N13.5 - Crossing vessel and stricture of ureter without hydronephrosis Status: Acute Assessment and Plan: Will plan definitive stone management, once she is discharged and infection is gone. No further surgical intervention at this time. She appears to be clinically improved, but remains unresponsive. Left stent in place, and stones visible on KUB. An ESWL in the future would be ideal. Follow up as an outpatient with urology. (2) Urinary tract infection due to ESBL Klebsiella: Code(s): N39.0 - Urinary tract infection, site not specified; B96.89 - Other specified bacterial agents as the cause of diseases classified elsewhere Status: Acute Assessment and Plan: Continue to treat with IV antibiotics. No further recommendations at this time. Subjective Subjective Date/Time Seen: 01/13/21 11:56 POD#1 Cystoscopy with left stent placement, left retrograde pyelogram. Patient is still unresponsive today, however her vitals have improved, although she remains tachypnic. A KUB was done s/p stent placement and the left stones are visible on KUB. Review of Systems Review of Systems: ROS unobtainable: Yes unobtainable due to medical condition Exam Resp: Effort & Inspection: tachypneic Cardio: Rate: regular rate GI: GI Palp: Yes Soft to palpation : General: Yes other (unable to determine CVA tenderness d/t medical condition) Urinary Catheter: Urinary Catheter: patent and draining and urine dark Extrem: General: amputation noted Below the knee: bilateral Objective Data Vital Signs Vital Signs: Vital Signs - 24 hr 01/12/21 12:00 01/12/21 14:02 01/12/21 15:51 Temperature 98.0 F 97.6 F Pulse Rate 107 H 101 H 98 Respiratory Rate 24 H 27 H Blood Pressure 109/50 L 112/61 Pulse Oximetry 100 99 100 01/12/21 16:00 01/12/21 16:15 01/12/21 16:30 Temperature Pulse Rate 100 103 H 112 H Respiratory Rate 34 H 24 H 26 H Blood Pressure 120/77 120/77 145/70 H Pulse Oximetry 100 100 100 01/12/21 16:45 01/12/21 17:00 01/12/21 17:15 Temperature Pulse Rate 114 H 113 H 118 H Respiratory Rate 23 H 23 H 22 H Blood Pressure 123/76 129/68 115/72 Pulse Oximetry 98 95 95 01/12/21 17:30 01/12/21 17:51 01/12/21 18:00 Temperature 97.9 F Pulse Rate 113 H 107 H 102 H Respiratory Rate 22 H 24 H Blood Pressure 124/65 107/58 L Pulse Oximetry 95 98 01/12/21 20:00 01/12/21 22:00 01/12/21 23:17 Temperature 98.8 F 98.0 F Pulse Rate 101 H 98 99 Respiratory Rate 22 H 20 Blood Pressure 113/58 L 106/52 L Pulse Oximetry 100 99 01/13/21 00:00 01/13/21 02:00 01/13/21 04:00 Temperature 97.7 F Pulse Rate 96 92 95 Respiratory Rate 20 22 H Blood Pressure 108/55 L Pulse Oximetry 99 100 01/13/21 05:59 01/13/21 08:00 Temperature 97.3 F L Pulse Rate 98 98 Respiratory Rate 24 H Blood Pressure 129/79 Pulse Oximetry 100 Intake/Output Intake/Output: Intake & Output 01/10/21 01/11/21 01/12/21 01/13/21 23:59 23:59 23:59 23:59 Intake Total 6237.5 3765.0 3265.0 Output Total 700 1075 900 Balance 6237.5 3065.0 2190.0 -900 Meds/Results Medications: Active Medications Generic Name Dose Route Start Last Admin Trade Name Freq PRN Reason Stop Dose Admin Aspirin 81 mg 01/13/21 09:00 Aspirin 81 Mg Chewable Tablet PO DAILY [facility] Atorvastatin Calcium 40 mg 01/13/21 09:00 Atorvastatin 40 Mg Tablet PO DAILY [facility] Famotidine 20 mg 01/12/21 17:34 01/12/21 19:05 Famotidine 20 Mg Tablet PO Not Given BID [facility] Gabapentin 600 mg 01/12/21 17:34 01/12/21 19:04 Gabapentin 300 Mg Capsule PO Not Given TID [facility] Levetiracetam 750 mg/ Dextrose 107.5 mls @ 430 mls/hr 01/12/21 21:00 01/13/21 09:28 IVPB 430 mls/hr Q12HR [facility] Administration Insulin Aspart 20 units 01/13/21 08:00 01/13/21 09:26 Insulin Aspart (*Bkc) 100 U
[2021-01-13 12:52] LABS: Glucose Point of Care 99 mg/dl (65-105)
[2021-01-13] MEDS: KCL 20 MEQ/SW 100 ML 100 ML 50 MEQ IVPB (13:02)
[2021-01-13] MEDS: MAGNESIUM SULF 2 GM/WATER 50ML 2 GM/50 ML BAG IVPB (13:02)
[2021-01-13] MEDS: ERTAPENEM 1 GM/NS 50 ML 1 GM/50 ML BAG IVPB (14:07)
[2021-01-13 14:48] LABS: Folic Acid 4.5 ng/mL (2.76->20)
--- NOTE | 2021-01-13 15:38 | PCSTNOTE ---
Therapist spoke with BERYL Chow, in the afternoon, who stated that patient is beginning to wake up more and was able to take a small sip of water earlier but patient fell back to sleep. Therapist will attempt Bedside Swallow Evaluation in the morning.
[2021-01-13 17:05] LABS: Glucose Point of Care 78 mg/dl (65-105)
[2021-01-13 20:23] LABS: Glucose Point of Care 95 mg/dl (65-105)
[2021-01-13] MEDS: GABAPENTIN 300 MG CAPSULE 600 MG PO (22:29)
[2021-01-14] VITALS (8 sets, daily range): BP systolic 117–132; BP diastolic 68–72; PULSE 83–88; RESP 14–20; TEMP 36.6–37.4; O2SAT 94–98
[2021-01-14 04:47] LABS: Basophils Percent Auto 0.2 % (0.2-1.2); Eosinophils Absolute Auto 0.1 K/mm3 (0-0.3); Eosinophils Percent Auto 0.9 % (0-4.4); Hematocrit 27.5 % (37.0-47.0); Hemoglobin 8.9 g/dL (12.0-15.0); Immature Granulocyte Absolute 0.04 K/mm3 (0.00-0.031); Immature Granulocyte Percent A 0.7 % (0-0.5); Immature Platelet Fraction Pct 17.2 % (0.9-11.2); Lymphocytes Absolute Auto 0.92 K/mm3 (0.9-3.2); Lymphocytes Percent Auto 16.4 % (18.3-44.2); Mean Corpuscular HGB Conc 32.4 g/dl (32-36); Mean Corpuscular Hemoglobin 29.7 pg (26-34); Mean Corpuscular Volume 91.7 fl (80-100); Mean Platelet Volume 13.3 fl (7.4-10.4); Monocytes Absolute Auto 0.3 K/mm3 (0.1-0.6); Monocytes Percent Auto 4.8 % (2.6-8.5); Neutrophils Absolute Auto 4.3 K/mm3 (1.3-6.7); Platelet Count Result 53 k/mm3 (150-375); Red Cell Distribution Width 13.4 % (11.5-14.5); White Blood Count 5.6 K/mm3 (4.5-10.0)
[2021-01-14 04:56] LABS: Alanine Aminotransferase 11 U/L (4-35); Albumin Level 1.9 g/dL (3.5-5.1); Alkaline Phosphatase 182 U/L (38-126); Anion Gap 3 mmol/L (8-16); Aspartate Amino Transferase 15 U/L (14-36); Bilirubin,Total 0.5 mg/dL (0.2-1.3); Blood Urea Nitrogen 15 mg/dL (7-17); Calcium 7.7 mg/dL (8.4-10.2); Carbon Dioxide 25 mmol/L (22-30); Chloride 107 mmol/L (98-107); Estimated CRCL calculation 110 ml/min; Estimated Glomerular Filt Rate > 60; Glucose 98 mg/dL (65-110); Magnesium 1.3 mg/dL (1.6-2.3); Phosphorus 2.2 mg/dL (2.5-4.5); Potassium 3.2 mmol/L (3.4-5.0); Sodium 135 mmol/L (137-145)
[2021-01-14 08:35] LABS: Glucose Point of Care 94 mg/dl (65-105)
[2021-01-14] MEDS: MAGNESIUM SULF 2 GM/WATER 50ML 2 GM/50 ML BAG IVPB (08:35)
[2021-01-14] MEDS: POTASSIUM/PHOSPHORUS/SODIUM 1.5 GM PACKET 1 PACKET PO (08:40)
[2021-01-14] MEDS: levETIRAcetam IV 750 MG in DEXTROSE 5% 100 ML 430 MG IVPB (08:40)
[2021-01-14] MEDS: GABAPENTIN 300 MG CAPSULE 600 MG PO ×2 (08:48→13:45)
[2021-01-14] MEDS: ASPIRIN 81 MG CHEWABLE TABLET PO (08:48)
[2021-01-14] MEDS: FAMOTIDINE 20 MG TABLET PO (08:49)
[2021-01-14] MEDS: ATORVASTATIN 40 MG TABLET PO (08:49)
--- NOTE | 2021-01-14 09:02 | PCSTNOTE ---
Please refer to the Bedside Swallow Evaluation in the EMR. Please note, silent aspiration cannot be ruled out at bedside.
[2021-01-14] MEDS: ACETAMINOPHEN 325 MG TABLET 650 MG PO (10:30)
[2021-01-14 11:54] LABS: Glucose Point of Care 193 mg/dl (65-105)
[2021-01-14] MEDS: ERTAPENEM 1 GM/NS 50 ML 1 GM/50 ML BAG IVPB (13:44)
--- NOTE | 2021-01-14 14:22 | PCDIET ---
Nutrition Follow-Up Complete: Nutrition Diagnosis: Inadequate oral intake related to altered mental status as evidenced by NPO diet. Nutrition Goal: Patient to meet estimated nutritional needs. Goal in progress. Patient has advanced to soft and bite size, diabetic diet with level 2 liquids and Glucerna Shake BID. MARKETING ASSISTANT MANAGER evaluation noted. Patient reports tolerating advanced diet and denies having tried Glucerna Shake, though does appear confused on visit. Ate about 75% of lunch (tray in room) and 100% of breakfast, per nursing records. Recommend continuing Glucerna Shake BID at this time. Noted blood sugars have been well controlled. Last recorded weight is 84 kg which is increased from last review. Bowel Motility: Last documented BM on 01/12/21 x 1. Labs Reviewed: RBC (3.00), Hgb (8.9), Hct (27.5), Glu (193), Cr (0.5), Na (135), Alb (1.9), Josh Ca (9.38), PO4 (2.2), Mg (1.3) Meds Noted: Magnesium Sulfate, KCl, Phos-NaK, Lipitor, Invanz, Pepcid, Keppra Additional Notes: Groin macerated. No documented pressure sores. Will continue to monitor with same goal. Nutrition Monitoring and Evaluation: Follow up every 5 days.
--- NOTE | 2021-01-14 14:27 | PM.IMPN ---
Progress Note: A&P Assessment and Plan (1) Altered mental status: Code(s): R41.82 - Altered mental status, unspecified Status: Acute Assessment and Plan: Patient's mental status much improved. Suspect this is related to sepsis from obstructing uropathy and pyelitis. [place] to baseline (2) Sepsis: Code(s): A41.9 - Sepsis, unspecified organism Status: Acute Assessment and Plan: Patient presents with sepsis symptoms with fever, elevated WBC, lactic acidosis and AMS. She has positive BCx and UCx with ESBL Klebsiella pneumonia sensitive to Ertapenem. The source related to UTI with obstructing pyelitis. CT scan showing left nephrolithiasis with obstructing 13 mm stone at the left ureteropelvic junction and left hydropneumonephrosis raising concern for postobstructive pyelitis. Stent placed on 01/12. Vanco stopped 01/12. Continue Ertapenem. Appreciate ID input (3) Obstruction of left ureteropelvic junction (UPJ): Code(s): N13.5 - Crossing vessel and stricture of ureter without hydronephrosis Status: Acute Assessment and Plan: Patient present with sepsis symptoms and found to have UTI with Septicemia. Abdominal CT scan showing left nephrolithiasis with obstructing 13 mm stone at the left ureteropelvic junction and left hydropneumonephrosis raising concern for postobstructive pyelitis. Urology was consulted and patient underwent cystoscopy 01/12 with left retrograde pyelogram and left stent placement. They found a large left UPJ stone with purulent urine. Continue IV abx. (4) Thrombocytopenia: Code(s): D69.6 - Thrombocytopenia, unspecified Status: Acute Assessment and Plan: Patient has normal baseline plt count. Plt count dropping felt related to sepsis. Anti-plt Ab and Heaprin induced Ab ordered. Repeat is better with platelet at 53K. Follow. (5) Fentanyl use disorder, moderate, dependence: Code(s): F11.20 - Opioid dependence, uncomplicated Status: Acute Assessment and Plan: Patient developed tachycardic, supraventricular at 180 with shaking and shivering given Metoprolol IV, Ativan and then morphine. Pupils were dilated and skin flushed. She has hx of drug use with fentanyl and street drugs. UDS positive for opiates. These symptoms may be related to withdrawal vs rigors from septicemia. Currently, not felt to be in withdrawal and more likely from septicemia. Much improved (6) Urinary tract infection due to ESBL Klebsiella: Code(s): N39.0 - Urinary tract infection, site not specified; B96.89 - Other specified bacterial agents as the cause of diseases classified elsewhere Status: Acute Assessment and Plan: As above (7) Lactic acidosis: Code(s): E87.2 - Acidosis Status: Acute Assessment and Plan: Lactic acid was as high as 6.1 but down to normal now. Related to above. (8) Generalized seizure: Code(s): R56.9 - Unspecified convulsions Status: Acute Assessment and Plan: Seizure with generalized shaking versus rigors from the septicemia. CT head done on 01/03/2021 was negative. EEG ordered but no neurology service available at this time. Keppra started IV. Repeat CT brain showing again no acute findings. Continue seizure precautions. (9) Hypertension: Code(s): I10 - Essential (primary) hypertension Status: Acute Assessment and Plan: Patient's blood pressure was reviewed on 01/14 Blood pressure remains well controlled. Will continue to hold Cozaar but start tomorrow if BP climbs (10) Insulin dependent diabetes mellitus: Status: Acute Assessment and Plan: A1c 9.0. The patient's blood glucose was reviewed on 01/14 Glucose has remained well controlled but has not been eating. Continue AccuCheks covering with sliding scale. Hypoglycemia protocol available as needed. Eating better so will start low dose Lantus and advance as glucose requires.
--- NOTE | 2021-01-14 15:22 | PCOTNOTE ---
Attempted to see pt for OT evaluation. Spoke with nurse, pt. on hold due to combative nature and plan to leave AMA.
--- NOTE | 2021-01-14 16:44 | PC.NURSE ---
Patient was adamant about leaving AMA after several times of being approached by both the physician and myself. She was informed that she has a life threatening infection that requires iv antibiotics, and still decided to leave AMA. Patient was alert and oriented x4 and was aware of the possible results of her decision.
--- NOTE | 2021-01-14 17:32 | PM.DS ---
DS: Admitting Diagnosis Admitting Diagnosis Altered mental status DS: Discharge Diagnosis Discharge Diagnosis (1) Altered mental status: Code(s): R41.82 - Altered mental status, unspecified Status: Acute Assessment and Plan: Patient's mental status much improved. [place] her mental status change was related to sepsis from obstructing uropathy and pyelitis. Mental status returned to baseline. (2) Sepsis: Code(s): A41.9 - Sepsis, unspecified organism Status: Acute Assessment and Plan: Patient presented with sepsis symptoms with fever, elevated WBC, lactic acidosis and altered mental status. She had positive BCx and UCx with ESBL Klebsiella pneumonia sensitive to Ertapenem. The source from UTI with obstructing pyelitis. CT scan showing left nephrolithiasis with obstructing 13 mm stone at the left ureteropelvic junction and left hydropneumonephrosis raising concern for postobstructive pyelitis. Ureteral stent placed on 01/12. Vancomycin stopped 01/12. We continued the Ertapenem. Dr Rivera, infectious disease, was consulted. Patient wanted to sign out against medical advise. She was alert and oriented x4. I called her but it went to voicemail and message was left. Dr Rivera was called but there are no oral antibiotics that would be appropriate for her to take at home. After myself and nursing explained in great detail the risk of leaving AMA including (but not limited to) return of septicemia, kidney failure and even , patient still decided to sign out against medical advise. Her central line and [place] removed and she signed the AMA paperwork and left. (3) Obstruction of left ureteropelvic junction (UPJ): Code(s): N13.5 - Crossing vessel and stricture of ureter without hydronephrosis Status: Acute Assessment and Plan: Patient presented with sepsis symptoms and found to have UTI with Septicemia. Abdominal CT scan showing left nephrolithiasis with obstructing 13 mm stone at the left ureteropelvic junction and left hydropneumonephrosis raising concern for postobstructive pyelitis. Urology was consulted and patient underwent cystoscopy 01/12/21 with left retrograde pyelogram and left stent placement. They found a large left UPJ stone with purulent urine. The PEDIATRIC CLINICAL NURSE SPECIALIST for urology was contacted and informed that the patient left AMA. They will call her about having stone treated and stent removal. (4) Thrombocytopenia: Code(s): D69.6 - Thrombocytopenia, unspecified Status: Acute Assessment and Plan: Patient has normal baseline platelet count. Plt count dropped to 35K felt related to septicemia. Treatment for septicemia as above. Repeat platelet at 53K. (5) Fentanyl use disorder, moderate, dependence: Code(s): F11.20 - Opioid dependence, uncomplicated Status: Acute Assessment and Plan: Patient developed tachycardic, supraventricular at 180 with shaking and shivering. She was given Metoprolol IV, Ativan and then morphine. Pupils were dilated and skin flushed. She has hx of drug use with fentanyl and street drugs. UDS positive for opiates. These symptoms may be related to withdrawal vs rigors from septicemia. No recurrence of symptoms. (6) Urinary tract infection due to ESBL Klebsiella: Code(s): N39.0 - Urinary tract infection, site not specified; B96.89 - Other specified bacterial agents as the cause of diseases classified elsewhere Status: Acute Assessment and Plan: As above (7) Lactic acidosis: Code(s): E87.2 - Acidosis Status: Acute Assessment and Plan: Lactic acid was as high as 6.1 but down to normal now. Related to above. (8) Generalized seizure: Code(s): R56.9 - Unspecified convulsions Status: Acute Assessment and Plan: Seizure with generalized shaking versus rigors from the septicemia. CT head done on 01/03/2021 was negative. EEG ordered but no neurology servi
[2021-01-14 21:49] LABS: Heparin Induced Platelet Antib Negative (Negative)
[2021-01-15 23:16] LABS: Platelet Antibody, Direct IgG NEGATIVE (NEGATIVE)
--- NOTE | 2021-01-20 13:25 | PC.NURSE ---
Plt Abx and Hep Ab are negative. Dr. Clarence calzada.
== END 2021-01-14 16:28 | disposition left against medical advice (07) | DRG 720 ==
LOC: ANHED 19:44 → ANHIMU 01-12 08:54
PROVIDERS: Emergency Medicine; Hospitalist; Internal Medicine; Urology; Admitting Provider Internal Medicine; Emergency Provider Emergency Medicine; PCP Physician Assistant; Visit Provider Internal Medicine
PROC: 0T778DZ Dilation of Left Ureter with Intraluminal Device, Via Natural or Artificial Opening Endoscopic (ICD-10-PCS; CPT 52352; principal; 2021-01-12 14:30)
DX: A41.89 Other specified sepsis (principal); F11.20 Opioid dependence, uncomplicated; K21.9 Gastro-esophageal reflux disease without esophagitis; E78.5 Hyperlipidemia, unspecified; I10 Essential (primary) hypertension; N13.6 Pyonephrosis; B96.1 Klebsiella pneumoniae [K. pneumoniae] as the cause of diseases classified elsewhere; R41.82 Altered mental status, unspecified; Z16.12 Extended spectrum beta lactamase (ESBL) resistance; E87.2 Acidosis; E11.65 Type 2 diabetes mellitus with hyperglycemia; G40.909 Epilepsy, unspecified, not intractable, without status epilepticus; E87.8 Other disorders of electrolyte and fluid balance, not elsewhere classified; D69.6 Thrombocytopenia, unspecified; Z89.512 Acquired absence of left leg below knee; Z89.511 Acquired absence of right leg below knee; Z79.4 Long term (current) use of insulin; Z79.82 Long term (current) use of aspirin; Z79.899 Other long term (current) drug therapy; Z88.0 Allergy status to penicillin; Z86.73 Personal history of transient ischemic attack (TIA), and cerebral infarction without residual deficits
CPT/HCPCS: 36415; 36600; 70450; 71045; 71275; 74018; 74176; 74420; 80048; 80053; 80307; 81001; 82010; 82140; 82550; 82553; 82565; 82607; 82746; 82805; 82948; 83036; 83605; 83690; 83735; 83880; 84100; 84443; 84484; 85025; 85055; 85610; 85730; 86022; 86023; 86140; 87040; 87086; 87186; 92610; 93005; 94640; 95816; 96360; 96361; 96365; 96367; 96375; 96376; 99285; A9270; C1758; C1769; C1887; C2617; G0378; J0131; J0692; J0696; J1335; J1630; J1644; J1815; J1940; J1953; J2060; J2270; J2405; J2704; J3370; J3475; J3480; J7030; J7120; Q9966; Q9967